=== PATIENT | male | born 1965 | race American Indian/Alaskan Native ===

== ENCOUNTER 2017-02-22 14:23 | Emergency (ER) | payer MEDICARE ==
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
[2017-02-22 21:40] VITALS: BP 104/67
--- NOTE | 2017-02-22 22:56 | XRay Report ---
FINAL REPORT PROCEDURE: XR KNEE 3V LT TECHNIQUE: LEFT knee radiographs, AP, lateral and sunrise views. CPT 83817 HISTORY: LEFT knee pain COMPARISON: No prior studies are available for comparison. FINDINGS: Fracture (s) and/or Dislocation(s): None . Alignment: Normal . Joint space(s): There is advanced chronic degenerative arthrosis of the knee joint. There is moderate degenerative arthrosis of the patellofemoral joint.. Soft tissues: There is no soft tissue swelling or mass.. Bone mineralization: Normal . Foreign bodies: None . IMPRESSION: There are degenerative changes. There is no fracture or malalignment..
== END 2017-02-22 23:57 | disposition home or self-care (01) ==
LOC: ED 14:23
DX: S86.912A Strain of unspecified muscle(s) and tendon(s) at lower leg level, left leg, initial encounter (principal); J45.909 Unspecified asthma, uncomplicated; F31.9 Bipolar disorder, unspecified; F20.9 Schizophrenia, unspecified; X58.XXXA Exposure to other specified factors, initial encounter; Y93.9 Activity, unspecified; Y92.9 Unspecified place or not applicable; Y99.9 Unspecified external cause status

== ENCOUNTER 2017-03-13 08:21 | Emergency (ER) | payer MEDICARE ==
[2017-03-13 09:26] LABS: Basophils % (Auto) 0.4 % (0.0-1.8); Eosinophils % (Auto) 0.1 % (0.0-4.3); Hematocrit 48.3 % (35.5-45.6); Hemoglobin 15.9 gm/dl (11.8-15.2); Mean Corpuscular HGB Conc 33 % (32-34); Mean Corpuscular Hemoglobin 30 pg (28-32); Mean Corpuscular Volume 92 fl (84-94); Platelet Count 236 K/mm3 (140-440); Red Blood Count 5.24 M/mm3 (3.65-5.03); Red Cell Distribution Width 14.2 % (13.2-15.2); White Blood Count 9.2 K/mm3 (4.5-11.0)
[2017-03-13 09:34] LABS: BUN/Creatinine Ratio 13; Blood Urea Nitrogen 15 mg/dL (9-20); Calcium 9.6 mg/dL (8.4-10.2); Carbon Dioxide 22 mmol/L (22-30); Glucose 119 mg/dL (75-100)
[2017-03-13 10:32] LABS: Anion Gap 25 mmol/L; Chloride 98.5 mmol/L (98-107); Sodium 142 mmol/L (137-145)
[2017-03-13] MEDS ORDERED: K-DUR PO ONE (10:33)
--- NOTE | 2017-03-13 10:50 | Emergency Department Report ---
HPI - General Chief Complaint: Psych Time Seen by Provider: 03/13/17 10:33 - HPI HPI: This is a 51-year-old male presents to the emergency department with complaint of insomnia, decreased appetite. Patient says that he sometimes is able to get to sleep but then wake up only a few hours later. Sometimes he feels as if he has trouble getting to sleep at all. Patient now says that he feels like he has not gotten any sleep over the past 3 days. He has a history of schizophrenia and bipolar disorder and says that he has been out of his Seroquel for the bipolar disorder. He also admits to some recent troubles with his as he has a suspicion of her cheating on him and also says that they have been having some arguments. He says when there is some type of confrontation that he is more prone to just "run away" instead of having an argument. He denies any suicidal or homicidal ideations or any hallucinations. His primary care physician is Dr. Lanza but he has not seen them regarding his symptoms. He has an appointment with the [facility] this coming Wednesday. He denies using any significant caffeinated products. He did admit to using cocaine 3 days ago. Patient says that he tries to eat food but he either is just not hungry and cannot make himself 2 or sometimes it makes his mouth hurt. ED Past Medical Hx - Past Medical History Hx Arthritis: Yes Hx Psychiatric Treatment: Yes (bipolar schiz) Hx Asthma: Yes Additional medical history: Chronic bronchitis - Surgical History Additional Surgical History: l) hand surg umbical hernia t&A. left knee surg - 2014 - Social History Smoking Status: Current Every Day Smoker Substance Use Type: Alcohol, Cocaine - Medications Home Medications: Home Medications Medication Instructions Recorded Confirmed Last Taken Type Cephalexin [Keflex] 500 mg PO Q12HR #10 cap 10/14/15 Unknown Rx Ibuprofen [Motrin 600 MG tab] 600 mg PO Q8H PRN #30 tablet 02/22/17 Unknown Rx QUEtiapine [SEROquel] 200 mg PO HS #20 tablet 03/13/17 Unknown Rx ED Review of Systems ROS: Stated complaint: MED REFILL Other details as noted in HPI Comment: All other systems reviewed and negative Constitutional: denies: chills, fever Eyes: denies: eye pain, eye discharge, vision change ENT: denies: ear pain, throat pain Respiratory: denies: cough, shortness of breath, wheezing Cardiovascular: denies: chest pain, palpitations Endocrine: other (insomnia, decreased appetite) Gastrointestinal: denies: abdominal pain, nausea, diarrhea Genitourinary: denies: urgency, dysuria Musculoskeletal: denies: back pain, joint swelling, arthralgia Skin: denies: rash, lesions Neurological: denies: headache, weakness, paresthesias Psychiatric: denies: auditory hallucinations, visual hallucinations, homicidal thoughts, suicidal thoughts Physical Exam - Physical Exam Vital Signs: Vital Signs 03/13/17 08:28 Temperature 98.8 F Pulse Rate 114 H Respiratory 18 Rate Blood Pressure 129/87 O2 Sat by Pulse 98 Oximetry Physical Exam: GENERAL: The patient is well-developed well-nourished. HENT: Normocephalic. Atraumatic. Patient has moist mucous membranes. Oropharynx is clear without any tonsillar hypertrophy, erythema or exudates. No aphthous ulcers seen. No drooling or trismus. EYES: Extraocular motions are intact. Pupils equal reactive to light bilaterally. NECK: Supple. Trachea is midline. CHEST/LUNGS: Clear to auscultation. There is no respiratory distress noted. HEART/CARDIOVASCULAR: Regular. There is no tachycardia. There is no gallop rub or murmur. ABDOMEN: Abdomen is soft, nontender. Patient has normal bowel sounds. There is no abdominal distention. SKIN: Skin is warm and dry. NEURO: The patient is awake, alert, and oriented. The patient is cooperative. The patient has no focal neurologic deficits. The patient has normal speech. MUSCULOSKELETAL: There is no tenderness or deformity. There is no limitation range of motion. There is no evidence of acute injury. ED Course Vital Signs 03/13/17 08:28 Temperature 98.8 F Pulse Rate 114 H Respiratory 18 Rate Blood Pressure 129/87 O2 Sat by Pulse 98 Oximetry ED Medical Decision Making - Lab Data Result diagrams: 03/13/17 08:41 03/13/17 08:41 - Medical Decision Making The patient came in with the main complaints of insomnia and decreased appetite. While he says that there was pain in his mouth with eating and drinking, I did not see any obvious aphthous ulcers or lesions. There is no drooling or trismus or any other abnormality seen. We discussed sleep habits. It does appears that the patient may have some level of chava from his bipolar disorder. It is not the point where he is having any active psychosis or any hallucinations but may be keeping him from getting to sleep or staying asleep. On top of that, the patient appears to be having some issues at home with his in which he has suspicion of her cheating on him. This certainly could be another reason for the patient having trouble sleeping and if there is some level of depression involved also be the reason for decreased appetite. The patient does have a history of schizophrenia and bipolar disorder and I am aware that this could be some level of paranoia related to those conditions, but at this time I have no reason to believe that the patient is lying and/or does not honestly believe or know about some problems at home. He does not appear to be somebody needs to be made a 1013. The patient has been out of his Seroquel for about one month and this may be partly the reason for some of these feelings are conditions and also Seroquel has been known to help people with sleep. He has an appointment coming up on Wednesday with the [facility]. He will be given a small amount of his Seroquel to see if they'll help him with his sleep and maybe even the appetite. He will return to the ER with any worsening symptoms or any acute distress. While I forgot to give the patient any discharge information regarding hyperkalemia, he is aware that he had a potassium level of 3, that it was replaced with potassium chloride, that he needs to eat an extra banana or 2 and that he needs to follow-up with his PCP regarding all of these issues. - Differential Diagnosis bipolar disorder, insomnia, depression Critical Care Time: No Critical care attestation.: If time is entered above; I have spent that time in minutes in the direct care of this critically ill patient, excluding procedure time. ED Disposition Clinical Impression: History of bipolar disorder, Decreased appetite, Hypokalemia Insomnia Qualifiers: Insomnia type: unspecified Qualified Code(s): G47.00 - Insomnia, unspecified Disposition: DC-01 TO HOME OR SELFCARE Is pt being admited?: No Condition: Stable Instructions: Bipolar Disorder (ED), Insomnia (ED) Additional Instructions: Please follow-up with your primary care physician in the next few days. Please follow-up with your psychiatrist next week as previously scheduled. Return to the emergency Department with any worsening of your symptoms or any acute distress. Prescriptions: QUEtiapine [SEROquel] 200 mg PO HS #20 tablet Referrals: KODY LANZA MD [Staff Physician] - 3-[address] [facility] [Outside] - 3-5 Days Time of Disposition: 11:31
[2017-03-13 11:56] LABS: Urine Drugs of Abuse Note Disclamer
[2017-03-13 12:04] VITALS: BP 139/92
[2017-03-13 12:04] LABS: Bacteria,Urine 1+ /HPF (Negative); Bilirubin,Urine NEG (Negative); Blood,Urine SM (Negative); Ketones,Urine 80 mg/dL (Negative); Leukocyte Esterase,Urine NEG (Negative); Mucus,Urine 3+ /HPF; Nitrite,Urine NEG (Negative)
== END 2017-03-13 12:01 | disposition home or self-care (01) ==
LOC: ED 08:21
DX: G47.00 Insomnia, unspecified (principal); E87.6 Hypokalemia; F31.9 Bipolar disorder, unspecified; J45.909 Unspecified asthma, uncomplicated; M19.90 Unspecified osteoarthritis, unspecified site; F17.200 Nicotine dependence, unspecified, uncomplicated; F14.10 Cocaine abuse, uncomplicated; F20.9 Schizophrenia, unspecified
CPT/HCPCS: 36415; 80048; 80307; 81001; 85025; 99283; G0480; 80320

== ENCOUNTER 2017-04-25 22:39 | Emergency (ER) | payer MEDICARE ==
[2017-04-25] MEDS ORDERED: TYLENOL PO ONE (23:01)
[2017-04-25 23:37] LABS: Basophils % (Auto) 0.5 % (0.0-1.8); Eosinophils % (Auto) 0.1 % (0.0-4.3); Hematocrit 48.6 % (35.5-45.6); Mean Corpuscular HGB Conc 33 % (32-34); Mean Corpuscular Hemoglobin 31 pg (28-32); Mean Corpuscular Volume 94 fl (84-94); Platelet Count 223 K/mm3 (140-440); Red Blood Count 5.17 M/mm3 (3.65-5.03); Red Cell Distribution Width 13.8 % (13.2-15.2); White Blood Count 10.4 K/mm3 (4.5-11.0)
[2017-04-25 23:42] LABS: Anion Gap 23 mmol/L; BUN/Creatinine Ratio 15; Blood Urea Nitrogen 16 mg/dL (9-20); Calcium 9.5 mg/dL (8.4-10.2); Carbon Dioxide 20 mmol/L (22-30); Chloride 97.7 mmol/L (98-107); Glucose 158 mg/dL (75-100); Sodium 138 mmol/L (137-145)
--- NOTE | 2017-04-26 00:12 | XRay Report ---
FINAL REPORT EXAM: XR CHEST ROUTINE 2V HISTORY: Shortness of breath TECHNIQUE: PA and lateral views of the chest PRIORS: None. FINDINGS: Lines, tubes, and devices: N/A Lungs and pleura: Trachea is normal in position. On the lateral view, there is a posterior basilar alveolar infiltrate identified. This is definitely identified in the left lower lobe on the frontal view but may also involve the right lower lobe. There is no evidence for pleural effusion, vascular congestion, or pneumothorax. Cardiomediastinal silhouette: Cardiac and mediastinal silhouettes are unremarkable. Other: Bony structures are intact. IMPRESSION: Posterior basilar infiltrate definitely in the left lower lobe but also possibly in the right lower lobe.
--- NOTE | 2017-04-26 00:15 | XRay Report ---
FINAL REPORT EXAM: XR KNEE 3V LT HISTORY: knee pain, injury TECHNIQUE: AP, oblique, and lateral views of the left knee PRIORS: Left knee x-rays 02/22/2017 FINDINGS: No acute fracture or dislocation is seen. The soft tissues demonstrate a moderate suprapatellar joint effusion. The bony mineralization is normal. There is joint space narrowing in both medial and lateral knee joints with spurring off the tibial spines and off the both medial and lateral knee joints. The overall appearance is stable. The patellofemoral joint as significant posterior spurring off patella, similar to the previous study. IMPRESSION: No acute abnormality of the left knee. Stable exam. Tricompartmental osteoarthritis.
[2017-04-26 00:27] LABS: Potassium 2.9 mmol/L (3.6-5.0)
[2017-04-26] MEDS ORDERED: K-DUR PO ONE (06:22)
[2017-04-26] MEDS ORDERED: ZITHROMAX PO STA (06:29)
[2017-04-26] MEDS ORDERED: NACL 0.9% 1000 ML 1,000 ML IV ONE (06:29)
[2017-04-26] MEDS ORDERED: TORADOL IV ONE (06:29)
[2017-04-26] MEDS ORDERED: ROCEPHIN/NS 1 GM/50 ML 1 GM/50 ML BAG IV ONE (06:29)
--- NOTE | 2017-04-26 06:31 | Emergency Department Report ---
ED General Adult HPI - General Chief complaint: Weakness Stated complaint: LEFT KNEE PAIN,SHORT OF BREATH Time Seen by Provider: 04/26/17 06:20 Source: patient, RN notes reviewed, old records reviewed Mode of arrival: Ambulatory Limitations: No Limitations - History of Present Illness Initial comments: This is a 51-year-old male who is previously known to this provider. His primary care doctor is Dr. LANZA Patient presents to the ER with a complaint of left-sided knee pain. The knee pain has been present for 12 years. It does not radiate anywhere. It increases with palpation and range of motion, and it decreases with rest. The patient denies headache and neck pain as well as chest pain. No recent travel, no recent hospital admissions, no calf pain. To me, the patient makes no complaint about blurry vision. He did admits to shortness of breath, cough and mucus production for a few days. No recent sick contacts, no recent antibiotic use. -: year(s) Location: left, lower extremity Severity scale (0 -10): 10 Quality: aching Consistency: intermittent Improves with: rest Worsens with: movement Associated Symptoms: cough, malaise, shortness of breath. denies: chest pain - Related Data Previous Rx's Medication Instructions Recorded Last Taken Type Cephalexin [Keflex] 500 mg PO Q12HR #10 cap 10/14/15 Unknown Rx Ibuprofen [Motrin 600 MG tab] 600 mg PO Q8H PRN #30 tablet 02/22/17 Unknown Rx QUEtiapine [SEROquel] 200 mg PO HS #20 tablet 03/13/17 Unknown Rx Acetaminophen [Tylenol Arthritis] 650 mg PO Q6HR PRN #30 tablet.er 04/26/17 Unknown Rx Albuterol Sulfate [Proair 90 mcg IH Q4HR PRN #2 aer.pow.ba 04/26/17 Unknown Rx Respiclick] Azithromycin 250 mg PO QDAY #4 tablet 04/26/17 Unknown Rx Benzonatate [Tessalon Perles] 100 mg PO Q8HR PRN #30 capsule 04/26/17 Unknown Rx Fluticasone [Flonase] 1 spray NS QDAY #1 bottle 04/26/17 Unknown Rx Ibuprofen [Motrin] 600 mg PO Q8H PRN #30 tablet 04/26/17 Unknown Rx Ondansetron [Zofran Odt] 4 mg PO Q8HR PRN #20 tab.rapdis 04/26/17 Unknown Rx Potassium Chloride [Klor-Con] 20 meq PO BID #14 packet 04/26/17 Unknown Rx Allergies Allergy/AdvReac Type Severity Reaction Status Date / Time No Known Allergies Allergy Verified 08/17/15 10:26 ED Review of Systems ROS: Stated complaint: LEFT KNEE PAIN,SHORT OF BREATH Other details as noted in HPI Constitutional: denies: fever Eyes: denies: vision change ENT: congestion Respiratory: cough Cardiovascular: denies: syncope Gastrointestinal: denies: vomiting Musculoskeletal: as per HPI, arthralgia Neurological: denies: confusion ED Past Medical Hx - Past Medical History Hx Arthritis: Yes Hx Psychiatric Treatment: Yes (bipolar schiz) Hx Asthma: Yes Additional medical history: Chronic bronchitis - Surgical History Additional Surgical History: l) hand surg umbical hernia t&A. left knee surg - 2014 - Social History Smoking Status: Former Smoker Substance Use Type: None - Medications Home Medications: Home Medications Medication Instructions Recorded Confirmed Last Taken Type Cephalexin [Keflex] 500 mg PO Q12HR #10 cap 10/14/15 Unknown Rx Ibuprofen [Motrin 600 MG tab] 600 mg PO Q8H PRN #30 tablet 02/22/17 Unknown Rx QUEtiapine [SEROquel] 200 mg PO HS #20 tablet 03/13/17 Unknown Rx Acetaminophen [Tylenol Arthritis] 650 mg PO Q6HR PRN #30 tablet.er 04/26/17 Unknown Rx Albuterol Sulfate [Proair 90 mcg IH Q4HR PRN #2 aer.pow.ba 04/26/17 Unknown Rx Respiclick] Azithromycin 250 mg PO QDAY #4 tablet 04/26/17 Unknown Rx Benzonatate [Tessalon Perles] 100 mg PO Q8HR PRN #30 capsule 04/26/17 Unknown Rx Fluticasone [Flonase] 1 spray NS QDAY #1 bottle 04/26/17 Unknown Rx Ibuprofen [Motrin] 600 mg PO Q8H PRN #30 tablet 04/26/17 Unknown Rx Ondansetron [Zofran Odt] 4 mg PO Q8HR PRN #20 tab.rapdis 04/26/17 Unknown Rx Potassium Chloride [Klor-Con] 20 meq PO BID #14 packet 04/26/17 Unknown Rx ED Physical Exam - General Limitations: No Limitations General appearance: alert, in no apparent distress - Head Head exam: Present: atraumatic, normocephalic - Eye Eye exam: Present: normal appearance, PERRL, EOMI, other (visual acuity intact to finger counting, color perception, reading at a close distance). Absent: nystagmus - ENT ENT exam: Present: normal exam, normal orophraynx, mucous membranes moist, normal external ear exam - Neck Neck exam: Present: normal inspection, full ROM - Respiratory Respiratory exam: Present: rhonchi (rhonchi noted in the left lower lung field) . Absent: respiratory distress - Cardiovascular Cardiovascular Exam: Present: regular rate, normal rhythm, normal heart sounds. Absent: tachycardia, systolic murmur, diastolic murmur, rubs, gallop - GI/Abdominal GI/Abdominal exam: Present: soft, normal bowel sounds. Absent: distended, tenderness, guarding, rebound, rigid, pulsatile mass - Rectal Rectal exam: Present: deferred - Extremities Exam Extremities exam: Present: normal inspection, full ROM, normal capillary refill , other (there is no palpable cord. There is a negative Homans sign. The left knee is tender in the lateral and medial joint line. There is pain with valgus and varus. The compartments are soft. 2+ pulses noted in the bilateral upper and lower extremities.). Absent: pedal edema, joint swelling, calf tenderness - Back Exam Back exam: Present: normal inspection, full ROM. Absent: tenderness, CVA tenderness (R), paraspinal tenderness - Neurological Exam Neurological exam: Present: alert, oriented X3, normal gait, other (Extraocular movements intact. Tongue midline. No facial droop. Facial sensation intact to light touch in the V1, V2, V3 distribution bilaterally. 5 and 5 strength in 4 extremities.. Sensation is intact to light touch in 4 extremities.). Absent : motor sensory deficit - Psychiatric Psychiatric exam: Present: normal affect, normal mood - Skin Skin exam: Present: warm, dry, intact, normal color. Absent: rash ED Course Vital Signs 04/25/17 04/25/17 04/26/17 22:53 23:06 02:09 Temperature 99.3 F Pulse Rate 110 H 88 Respiratory 20 18 18 Rate Blood Pressure 121/84 Blood Pressure 126/87 [Left] O2 Sat by Pulse 94 Oximetry 04/26/17 04/26/17 04/26/17 02:11 02:45 03:15 Temperature Pulse Rate 86 90 Respiratory 18 16 16 Rate Blood Pressure Blood Pressure 122/73 114/72 [Left] O2 Sat by Pulse Oximetry 04/26/17 04/26/17 04/26/17 03:45 04:30 05:30 Temperature Pulse Rate 90 89 89 Respiratory 16 16 16 Rate Blood Pressure Blood Pressure 114/82 118/88 119/88 [Left] O2 Sat by Pulse Oximetry 04/26/17 04/26/17 06:30 07:30 Temperature 97.6 F Pulse Rate 94 H 87 Respiratory 20 16 Rate Blood Pressure Blood Pressure 120/81 125/84 [Left] O2 Sat by Pulse 94 Oximetry - Reevaluation(s) Reevaluation #1: 04/26/17 08:07 Patient sleeping comfortably in stretcher. Vital signs remained stable. Patient in no distress. Walks without desaturation. Patient will be discharged at this time. ED Medical Decision Making - Lab Data Result diagrams: 04/25/17 23:03 04/25/17 23:03 Vital Signs 04/25/17 04/25/17 04/26/17 22:53 23:06 02:09 Temperature 99.3 F Pulse Rate 110 H 88 Respiratory 20 18 18 Rate Blood Pressure 121/84 Blood Pressure 126/87 [Left] O2 Sat by Pulse 94 Oximetry 04/26/17 04/26/17 04/26/17 02:11 02:45 03:15 Temperature Pulse Rate 86 90 Respiratory 18 16 16 Rate Blood Pressure Blood Pressure 122/73 114/72 [Left] O2 Sat by Pulse Oximetry 04/26/17 04/26/17 04/26/17 03:45 04:30 05:30 Temperature Pulse Rate 90 89 89 Respiratory 16 16 16 Rate Blood Pressure Blood Pressure 114/82 118/88 119/88 [Left] O2 Sat by Pulse Oximetry 04/26/17 06:30 Temperature Pulse Rate 94 H Respiratory 20 Rate Blood Pressure Blood Pressure 120/81 [Left] O2 Sat by Pulse Oximetry Lab Results 04/25/17 04/25/17 Range/Units 23:03 23:03 WBC 10.4 (4.5-11.0) K/mm3 RBC 5.17 H (3.65-5.03) M/mm3 Hgb 16.0 H (11.8-15.2) gm/dl Hct 48.6 H (35.5-45.6) % MCV 94 (84-94) fl MCH 31 (28-32) pg MCHC 33 (32-34) % RDW 13.8 (13.2-15.2) % Plt Count 223 (140-440) K/mm3 Lymph % (Auto) 25.2 (13.4-35.0) % Hitchcock % (Auto) 6.0 (0.0-7.3) % Eos % (Auto) 0.1 (0.0-4.3) % Baso % (Auto) 0.5 (0.0-1.8) % Lymph # 2.6 (1.2-5.4) K/mm3 Hitchcock # 0.6 (0.0-0.8) K/mm3 Eos # 0.0 (0.0-0.4) K/mm3 Baso # 0.1 (0.0-0.1) K/mm3 Seg Neutrophils % 68.2 (40.0-70.0) % Seg Neutrophils # 7.1 (1.8-7.7) K/mm3 Sodium 138 (137-145) mmol/L Potassium 2.9 L* (3.6-5.0) mmol/L Chloride 97.7 L (98-107) mmol/L Carbon Dioxide 20 L (22-30) mmol/L Anion Gap 23 mmol/L BUN 16 (9-20) mg/dL Creatinine 1.1 (0.8-1.5) mg/dL Estimated GFR > 60 ml/min BUN/Creatinine Ratio 15 % Glucose 158 H (75-100) mg/dL Calcium 9.5 (8.4-10.2) mg/dL Troponin T < 0.010 (0.00-0.029) ng/mL - EKG Data -: EKG Interpreted by Mn - EKG Data 04/26/17 07:43 Sinus tachycardia, 101 bpm, left axis deviation, poor R progression, abnormal EKG, not morphologically consistent with ST elevation myocardial infarction, QTC prolonged at 561 ms, compared to prior EKG, left axis deviation appears to be new. - Radiology Data Radiology results: report reviewed, image reviewed X-ray the chest suggests left posterior pneumonia, possible right lower lobe pneumonia. - Medical Decision Making Differential diagnosis, including but not limited to: Dehydration, electrolyte derangement, pneumonia, knee arthritis Assessment and plan: 51-year-old male with a primary complaint of left knee pain which has been present for 12 years. X-ray suggests arthritis. No DVT or pulmonary embolus risk factors, low risk by well's criteria, walks with a steady gait. The patient can follow up with outpatient orthopedics and/or physical therapy for this. He is tolerating oral feeds, his tachycardia has resolved, he is loaded with IV fluids, ceftriaxone and azithromycin for his presumed pneumonia, and he is suitable for a trial of outpatient management of antibiotics. EKG is abnormal but can be followed up by an outpatient primary care doctor or enamel shader, to me, the patient did not complain of chest pain, he is low risk by QUINN score, he is low risk by heart score, troponin negative 3. Critical care attestation.: If time is entered above; I have spent that time in minutes in the direct care of this critically ill patient, excluding procedure time. ED Disposition Clinical Impression: Left knee pain, Bronchitis, Hypokalemia Disposition: TO HOME OR SELFCARE Is pt being admited?: No Does the pt Need Aspirin: No Condition: Good Instructions: Acute Bronchitis (ED) Additional Instructions: X-ray of the chest suggested left-sided pneumonia. Take the antibiotics as directed, take the pain medicine, cough medication, breathing medication as needed/directed. Potassium levels were decreased in the ER, take potassium supplementation as directed, do not take Seroquel until cleared by your primary care doctor. I recommend that you follow-up with the primary care doctor within the next 2-3 days for a recheck. EKG demonstrated abnormalities, this should be followed up by her primary care doctor or enamel shader within the next 7-10 days. Follow up with OB or primary care doctor or any illicit cardiology group for further follow-up on this. Avoid consumption of alcohol. Return to the ER right away with new pain, worsened pain, migration of pain, fevers, chills, lethargy, irritability, projectile vomiting, change in mental status, inability to tolerate liquid feeds. X-ray the left knee demonstrated arthritis. Please follow-up with an client account specialist within the next 4-[address] Snell is a local client account specialist. Prescriptions: Acetaminophen [Tylenol Arthritis] 650 mg PO Q6HR PRN #30 tablet.er PRN Reason: Pain Albuterol Sulfate [Proair Respiclick] 90 mcg IH Q4HR PRN #2 aer.pow.ba PRN Reason: Wheezing Azithromycin 250 mg PO QDAY #4 tablet Benzonatate [Tessalon Perles] 100 mg PO Q8HR PRN #30 capsule PRN Reason: Cough Fluticasone [Flonase] 1 spray NS QDAY #1 bottle Ibuprofen [Motrin] 600 mg PO Q8H PRN #30 tablet PRN Reason: Pain Ondansetron [Zofran Odt] 4 mg PO Q8HR PRN #20 tab.rapdis PRN Reason: Nausea Potassium Chloride [Klor-Con] 20 meq PO BID #14 packet Referrals: KODY LANZA MD [Primary Care Provider] - 3-5 Days CHILANGO SNELL MD [Staff Physician] - 3-5 Days [facility] [Provider Group] - 3-5 Days [facility] [Provider Group] - 3-5 Days
[2017-04-26] MEDS ORDERED: NACL 0.9% IV ONE (06:45)
[2017-04-26] MEDS ORDERED: ROCEPHIN IV ONE (06:45)
[2017-04-26 07:55] VITALS: BP 125/84
== END 2017-04-26 08:44 | disposition home or self-care (01) ==
LOC: ED 22:39
DX: M25.562 Pain in left knee (principal); J40 Bronchitis, not specified as acute or chronic; E87.6 Hypokalemia; M19.90 Unspecified osteoarthritis, unspecified site; J45.909 Unspecified asthma, uncomplicated; Z87.891 Personal history of nicotine dependence; Z98.890 Other specified postprocedural states
CPT/HCPCS: 36415; 71020; 73562; 80048; 83735; 84484; 85025; 93005; 93010; 96361; 96374; 96375; 99284; J0696; J1885; J7030

== ENCOUNTER 2017-05-03 09:39 | Emergency (ER) | payer MEDICARE ==
[2017-05-03 10:40] VITALS: BP 145/96
[2017-05-03] MEDS ORDERED: MOTRIN PO ONE (10:40)
--- NOTE | 2017-05-03 13:54 | Emergency Department Report ---
ED ENT HPI - General Chief complaint: Dental/Oral Stated complaint: SWOLLEN JAW Time Seen by Provider: 05/03/17 13:30 Source: patient Mode of arrival: Ambulatory Limitations: No Limitations - History of Present Illness Initial comments: PT states he knows he has a cavity (left upper) PT states his tooth was irritating him yesterday and he woke up with a knot on his face. PT states he has not been to the dentist for years. PT states he was in the ED last week for PNA. PT states he finished his antibiotics 2 days ago. PT states he is feeling better, no cough, no fevers or chills. MD complaint: tooth pain -: Gradual, days(s) Location: tooth # (left upper) Severity: moderate Severity scale (0 -10): 7 Quality: aching, constant Consistency: constant Improves with: none Worsens with: none Context- Dental: history of dental caries, poor dental care Associated Symptoms: denies: fever, cough - Related Data Previous Rx's Medication Instructions Recorded Last Taken Type QUEtiapine [SEROquel] 200 mg PO HS #20 tablet 03/13/17 Unknown Rx Acetaminophen [Tylenol Arthritis] 650 mg PO Q6HR PRN #30 tablet.er 04/26/17 Unknown Rx Albuterol Sulfate [Proair 90 mcg IH Q4HR PRN #2 aer.pow.ba 04/26/17 Unknown Rx Respiclick] Benzonatate [Tessalon Perles] 100 mg PO Q8HR PRN #30 capsule 04/26/17 Unknown Rx Fluticasone [Flonase] 1 spray NS QDAY #1 bottle 04/26/17 Unknown Rx Ibuprofen [Motrin] 600 mg PO Q8H PRN #30 tablet 04/26/17 Unknown Rx Ondansetron [Zofran Odt] 4 mg PO Q8HR PRN #20 tab.rapdis 04/26/17 Unknown Rx Potassium Chloride [Klor-Con] 20 meq PO BID #14 packet 04/26/17 Unknown Rx Clindamycin [Clindamycin CAP] 300 mg PO Q8H #30 cap 05/03/17 Unknown Rx Allergies Allergy/AdvReac Type Severity Reaction Status Date / Time No Known Allergies Allergy Verified 08/17/15 10:26 ED Dental HPI - General Chief complaint: Dental/Oral Stated complaint: SWOLLEN JAW Time Seen by Provider: 05/03/17 13:30 Source: patient Mode of arrival: Ambulatory Limitations: No Limitations - Related Data Previous Rx's Medication Instructions Recorded Last Taken Type QUEtiapine [SEROquel] 200 mg PO HS #20 tablet 03/13/17 Unknown Rx Acetaminophen [Tylenol Arthritis] 650 mg PO Q6HR PRN #30 tablet.er 04/26/17 Unknown Rx Albuterol Sulfate [Proair 90 mcg IH Q4HR PRN #2 aer.pow.ba 04/26/17 Unknown Rx Respiclick] Benzonatate [Tessalon Perles] 100 mg PO Q8HR PRN #30 capsule 04/26/17 Unknown Rx Fluticasone [Flonase] 1 spray NS QDAY #1 bottle 04/26/17 Unknown Rx Ibuprofen [Motrin] 600 mg PO Q8H PRN #30 tablet 04/26/17 Unknown Rx Ondansetron [Zofran Odt] 4 mg PO Q8HR PRN #20 tab.rapdis 04/26/17 Unknown Rx Potassium Chloride [Klor-Con] 20 meq PO BID #14 packet 04/26/17 Unknown Rx Clindamycin [Clindamycin CAP] 300 mg PO Q8H #30 cap 05/03/17 Unknown Rx Allergies Allergy/AdvReac Type Severity Reaction Status Date / Time No Known Allergies Allergy Verified 08/17/15 10:26 ED Review of Systems ROS: Stated complaint: SWOLLEN JAW Other details as noted in HPI Comment: All other systems reviewed and negative Constitutional: denies: chills, fever ENT: dental pain. denies: throat pain Respiratory: denies: cough, shortness of breath Gastrointestinal: denies: abdominal pain Skin: denies: change in color ED Past Medical Hx - Past Medical History Hx Arthritis: Yes Hx Psychiatric Treatment: Yes (bipolar schiz) Hx Asthma: Yes Additional medical history: Chronic bronchitis - Surgical History Additional Surgical History: l) hand surg umbical hernia t&A. left knee surg - 2014 - Social History Smoking Status: Current Some Day Smoker Substance Use Type: Cocaine, Marijuana - Medications Home Medications: Home Medications Medication Instructions Recorded Confirmed Last Taken Type QUEtiapine [SEROquel] 200 mg PO HS #20 tablet 03/13/17 Unknown Rx Acetaminophen [Tylenol Arthritis] 650 mg PO Q6HR PRN #30 tablet.er 04/26/17 Unknown Rx Albuterol Sulfate [Proair 90 mcg IH Q4HR PRN #2 aer.pow.ba 04/26/17 Unknown Rx Respiclick] Benzonatate [Tessalon Perles] 100 mg PO Q8HR PRN #30 capsule 04/26/17 Unknown Rx Fluticasone [Flonase] 1 spray NS QDAY #1 bottle 04/26/17 Unknown Rx Ibuprofen [Motrin] 600 mg PO Q8H PRN #30 tablet 04/26/17 Unknown Rx Ondansetron [Zofran Odt] 4 mg PO Q8HR PRN #20 tab.rapdis 04/26/17 Unknown Rx Potassium Chloride [Klor-Con] 20 meq PO BID #14 packet 04/26/17 Unknown Rx Clindamycin [Clindamycin CAP] 300 mg PO Q8H #30 cap 05/03/17 Unknown Rx ED Physical Exam - General Limitations: No Limitations General appearance: alert, in no apparent distress - Head Head exam: Present: atraumatic, normocephalic, other (mild facial edema noted to L maxillary - no cellulitis ) - Eye Eye exam: Present: normal appearance, PERRL. Absent: conjunctival injection - ENT ENT exam: Present: mucous membranes moist, normal external ear exam - Expanded ENT Exam Expanded Mouth exam: Absent: drooling, trismus Teeth exam: Present: dental caries, dental tenderness #, gingival enlargement 1 - Other (tooth absent) 2 - Dental Tenderness 3 - Other (left upper gum, enlarged, no palpable fluid collection) Throat exam: Positive: normal inspection. Negative: tonsillar erythema, tonsillomegaly, tonsillar exudate - Neck Neck exam: Present: normal inspection, full ROM - Respiratory Respiratory exam: Present: rhonchi (cuauhtemoc bases). Absent: respiratory distress, wheezes - Cardiovascular Cardiovascular Exam: Present: regular rate, normal rhythm, normal heart sounds - Extremities Exam Extremities exam: Present: normal inspection, full ROM - Back Exam Back exam: Present: normal inspection, full ROM - Neurological Exam Neurological exam: Present: alert, oriented X3, normal gait - Psychiatric Psychiatric exam: Present: normal affect, normal mood - Skin Skin exam: Present: warm, dry, intact, normal color ED Course Vital Signs 05/03/17 10:38 Temperature 98.4 F Pulse Rate 76 Respiratory 17 Rate Blood Pressure 145/96 [Left] O2 Sat by Pulse 98 Oximetry - Reevaluation(s) Reevaluation #1: 05/03/17 14:14 PT aware he will need to follow up with Dentist. PT given strict return precautions. PT has no questions at this time. - Pulse Oximetry Interpretation Digit-Finger Initial Pulse Oximetry Readin Actions Taken: none ED Medical Decision Making - Differential Diagnosis dental abscess, gingivitis, toothach Critical Care Time: No Critical care attestation.: If time is entered above; I have spent that time in minutes in the direct care of this critically ill patient, excluding procedure time. ED Disposition Clinical Impression: Toothache, Left facial swelling Disposition: TO HOME OR SELFCARE Is pt being admited?: No Does the pt Need Aspirin: No Condition: Stable Instructions: Dental Abscess (ED), Dental Caries (ED), Toothache (ED) Additional Instructions: Good oral hygiene No smoking Swish and spit warm salt water four times a day Follow up with Dentist in 3-5 days Follow up with PCP in 3-5 days for BP recheck Return to ED if worsening swelling, pain or you develop fevers, chills, nausea or vomiting. Prescriptions: Clindamycin [Clindamycin CAP] 300 mg PO Q8H #30 cap Referrals: KODY LANZA MD [Primary Care Provider] - 3-5 Days Forms: Work/School Release Form(ED) Time of Disposition: 14:23
== END 2017-05-03 14:37 | disposition home or self-care (01) ==
LOC: ED 09:39
DX: K08.89 Other specified disorders of teeth and supporting structures (principal); R22.0 Localized swelling, mass and lump, head; F31.9 Bipolar disorder, unspecified; F20.9 Schizophrenia, unspecified; J45.909 Unspecified asthma, uncomplicated; F17.200 Nicotine dependence, unspecified, uncomplicated; F12.10 Cannabis abuse, uncomplicated
CPT/HCPCS: 99282

== ENCOUNTER 2017-05-09 09:02 | Emergency (ER) | payer MEDICARE ==
[2017-05-09 09:11] VITALS: BP 134/94
[2017-05-09 10:47] LABS: CDIFF A/B Negative (Negative); CDIFF Internal QC Valid
--- NOTE | 2017-05-09 11:57 | Emergency Department Report ---
ED N/V/D HPI - General Chief complaint: Nausea/Vomiting/Diarrhea Stated complaint: DIARRHEA Source: patient Mode of arrival: Ambulatory Limitations: No Limitations - History of Present Illness Initial comments: 51-year-old -[place] male comes in for complaint of diarrhea for 7 days. Patient had a recent history of IV antibiotics such as clindamycin as well as by mouth clindamycin for pneumonia and tooth abscess. He reports that he's had 3-4 stools a day that have been watery and very loose. He stopped taking the clindamycin yesterday. He denies any abdominal cramping. Denies any fever or chills. He currently has no primary care provider MD complaint: nausea, diarrhea -: days(s) (3) Description of Vomiting: watery Associated Abdominal Pain: No Severity: moderate Pain Scale: 0 Consistency: intermittent Improves with: none Worsens with: medication Associated Symptoms: headaches - Related Data Previous Rx's Medication Instructions Recorded Last Taken Type QUEtiapine [SEROquel] 200 mg PO HS #20 tablet 03/13/17 Unknown Rx Acetaminophen [Tylenol Arthritis] 650 mg PO Q6HR PRN #30 tablet.er 04/26/17 Unknown Rx Albuterol Sulfate [Proair 90 mcg IH Q4HR PRN #2 aer.pow.ba 04/26/17 Unknown Rx Respiclick] Benzonatate [Tessalon Perles] 100 mg PO Q8HR PRN #30 capsule 04/26/17 Unknown Rx Fluticasone [Flonase] 1 spray NS QDAY #1 bottle 04/26/17 Unknown Rx Ondansetron [Zofran Odt] 4 mg PO Q8HR PRN #20 tab.rapdis 04/26/17 Unknown Rx Potassium Chloride [Klor-Con] 20 meq PO BID #14 packet 04/26/17 Unknown Rx Clindamycin [Clindamycin CAP] 300 mg PO Q8H #30 cap 05/03/17 Unknown Rx Ibuprofen [Motrin 600 MG tab] 600 mg PO Q8H PRN 10 Days #30 05/09/17 Unknown Rx tablet metroNIDAZOLE [Flagyl] 500 mg PO Q12HR 7 Days #14 tab 05/09/17 Unknown Rx Allergies Allergy/AdvReac Type Severity Reaction Status Date / Time No Known Allergies Allergy Verified 08/17/15 10:26 ED Review of Systems ROS: Stated complaint: DIARRHEA Other details as noted in HPI Constitutional: denies: chills, fever Eyes: denies: eye pain, eye discharge, vision change ENT: denies: ear pain, throat pain Respiratory: denies: cough, shortness of breath, wheezing Cardiovascular: denies: chest pain, palpitations Endocrine: no symptoms reported Gastrointestinal: nausea, diarrhea Genitourinary: denies: urgency, dysuria Musculoskeletal: denies: back pain, joint swelling, arthralgia Skin: denies: rash, lesions Neurological: headache Hematological/Lymphatic: denies: easy bleeding, easy bruising ED Past Medical Hx - Past Medical History Hx Arthritis: Yes Hx Psychiatric Treatment: Yes (bipolar schiz) Hx Asthma: Yes Additional medical history: Chronic bronchitis - Surgical History Past Surgical History?: Yes Additional Surgical History: l) hand surg umbical hernia t&A. left knee surg - 2014 - Social History Smoking Status: Current Every Day Smoker Substance Use Type: None - Medications Home Medications: Home Medications Medication Instructions Recorded Confirmed Last Taken Type QUEtiapine [SEROquel] 200 mg PO HS #20 tablet 03/13/17 Unknown Rx Acetaminophen [Tylenol Arthritis] 650 mg PO Q6HR PRN #30 tablet.er 04/26/17 Unknown Rx Albuterol Sulfate [Proair 90 mcg IH Q4HR PRN #2 aer.pow.ba 04/26/17 Unknown Rx Respiclick] Benzonatate [Tessalon Perles] 100 mg PO Q8HR PRN #30 capsule 04/26/17 Unknown Rx Fluticasone [Flonase] 1 spray NS QDAY #1 bottle 04/26/17 Unknown Rx Ondansetron [Zofran Odt] 4 mg PO Q8HR PRN #20 tab.rapdis 04/26/17 Unknown Rx Potassium Chloride [Klor-Con] 20 meq PO BID #14 packet 04/26/17 Unknown Rx Clindamycin [Clindamycin CAP] 300 mg PO Q8H #30 cap 05/03/17 Unknown Rx Ibuprofen [Motrin 600 MG tab] 600 mg PO Q8H PRN 10 Days #30 05/09/17 Unknown Rx tablet metroNIDAZOLE [Flagyl] 500 mg PO Q12HR 7 Days #14 tab 05/09/17 Unknown Rx ED Physical Exam - General Limitations: No Limitations General appearance: alert, in no apparent distress - Head Head exam: Present: atraumatic, normocephalic - Eye Eye exam: Present: normal appearance - ENT ENT exam: Present: mucous membranes moist - Neck Neck exam: Present: normal inspection - Respiratory Respiratory exam: Present: normal lung sounds bilaterally. Absent: respiratory distress - Cardiovascular Cardiovascular Exam: Present: regular rate, normal rhythm. Absent: systolic murmur, diastolic murmur, rubs, gallop - GI/Abdominal GI/Abdominal exam: Present: soft, normal bowel sounds - Rectal Rectal exam: Present: deferred - Extremities Exam Extremities exam: Present: normal inspection - Back Exam Back exam: Present: normal inspection - Neurological Exam Neurological exam: Present: alert, oriented X3 - Psychiatric Psychiatric exam: Present: normal affect, normal mood - Skin Skin exam: Present: warm, dry, intact, normal color. Absent: rash ED Course Vital Signs 05/09/17 09:07 Temperature 98.5 F Pulse Rate 89 Respiratory 18 Rate Blood Pressure 134/94 O2 Sat by Pulse 100 Oximetry ED Medical Decision Making - Medical Decision Making Patient has been evaluated by this provider faster. Discussed the patient's vital signs are stable he does not appear toxic is no abdominal pain negative examination and abdomen. Discussed with patient will place him on Flagyl. Recommend [id number] probiotics to help with the floor of his GI tract. Discussed the patient is imperative for him to follow up with her primary care provider within 3-5 days for further evaluation. Discussed the patient that his stool culture came back negative for C. difficile. We will refill patient ibuprofen for his headache. Patient verbalized understanding. Critical care attestation.: If time is entered above; I have spent that time in minutes in the direct care of this critically ill patient, excluding procedure time. ED Disposition Clinical Impression: Diarrhea due to drug Headache Qualifiers: Headache type: unspecified Headache chronicity pattern: acute headache Intractability: not intractable Qualified Code(s): R51 - Headache Disposition: DC-01 TO HOME OR SELFCARE Is pt being admited?: No Does the pt Need Aspirin: No Condition: Stable Instructions: Migraine Headache (ED), Acute Diarrhea (ED) Additional Instructions: Take medications as prescribed. Follow up with the primary care provider when 3 -5 days for continued care. Prescriptions: Ibuprofen [Motrin 600 MG tab] 600 mg PO Q8H PRN 10 Days #30 tablet PRN Reason: Pain metroNIDAZOLE [Flagyl] 500 mg PO Q12HR 7 Days #14 tab Referrals: PRIMARY CARE, [Primary Care Provider] - 3-5 Days [facility] [Outside] - 3-5 Days
[2017-05-09] MEDS ORDERED: MOTRIN PO ONE (12:03)
== END 2017-05-09 12:13 | disposition home or self-care (01) ==
LOC: ED 09:02
DX: K52.1 Toxic gastroenteritis and colitis (principal); R51 Headache; M19.90 Unspecified osteoarthritis, unspecified site; F20.9 Schizophrenia, unspecified; J45.909 Unspecified asthma, uncomplicated
CPT/HCPCS: 87324; 99283

== ENCOUNTER 2017-05-12 15:31 | Emergency (ER) | payer MEDICARE ==
[2017-05-12 15:59] VITALS: BP 120/93
[2017-05-12] MEDS ORDERED: XYLOCAINE 1% 20 mL INFILTRATI ONE (18:40)
[2017-05-12] MEDS ORDERED: XYLOCAINE 1% MPF 5 mL ONE (18:47)
[2017-05-12] MEDS ORDERED: NORCO 5/325 PO ONE (20:10)
--- NOTE | 2017-05-12 20:38 | Emergency Department Report ---
ED General Adult HPI - General Chief complaint: Dental/Oral Stated complaint: ABSCESS Time Seen by Provider: 05/12/17 18:09 Source: patient Mode of arrival: Ambulatory Limitations: No Limitations - History of Present Illness Initial comments: He is a 51-year-old male asthma by history of dental caries who presents with upper left tooth pain. Patient states that he has been given antibiotics for his tooth pain however he stopped using his antibiotics which were given to him in the ED about a week ago due to him having diarrhea from it. He's noticed more swelling from his tooth and he states that the pain is an 8 out of 10 chewing makes it worse as a sharp pain that radiates throughout his mouth. Patient denies having any fevers or chills or any nausea or vomiting. Patient states that he came to the ED to see if he can get his abscess drained. - Related Data Previous Rx's Medication Instructions Recorded Last Taken Type QUEtiapine [SEROquel] 200 mg PO HS #20 tablet 03/13/17 Unknown Rx Acetaminophen [Tylenol Arthritis] 650 mg PO Q6HR PRN #30 tablet.er 04/26/17 Unknown Rx Albuterol Sulfate [Proair 90 mcg IH Q4HR PRN #2 aer.pow.ba 04/26/17 Unknown Rx Respiclick] Benzonatate [Tessalon Perles] 100 mg PO Q8HR PRN #30 capsule 04/26/17 Unknown Rx Fluticasone [Flonase] 1 spray NS QDAY #1 bottle 04/26/17 Unknown Rx Ondansetron [Zofran Odt] 4 mg PO Q8HR PRN #20 tab.rapdis 04/26/17 Unknown Rx Potassium Chloride [Klor-Con] 20 meq PO BID #14 packet 04/26/17 Unknown Rx Clindamycin [Clindamycin CAP] 300 mg PO Q8H #30 cap 05/03/17 Unknown Rx Ibuprofen [Motrin 600 MG tab] 600 mg PO Q8H PRN 10 Days #30 05/09/17 Unknown Rx tablet metroNIDAZOLE [Flagyl] 500 mg PO Q12HR 7 Days #14 tab 05/09/17 Unknown Rx Allergies Allergy/AdvReac Type Severity Reaction Status Date / Time No Known Allergies Allergy Verified 05/12/17 15:52 ED Review of Systems ROS: Stated complaint: ABSCESS Other details as noted in HPI Constitutional: denies: chills, fever Eyes: denies: eye pain, eye discharge, vision change ENT: dental pain. denies: ear pain, throat pain Respiratory: denies: cough, shortness of breath, wheezing Cardiovascular: denies: chest pain, palpitations Endocrine: no symptoms reported Gastrointestinal: denies: abdominal pain, nausea, diarrhea Genitourinary: denies: urgency, dysuria Musculoskeletal: denies: back pain, joint swelling, arthralgia Skin: denies: rash, lesions Neurological: denies: headache, weakness, paresthesias Psychiatric: denies: anxiety, depression Hematological/Lymphatic: denies: easy bleeding, easy bruising ED Past Medical Hx - Past Medical History Previous Medical History?: Yes Hx Arthritis: Yes Hx Psychiatric Treatment: Yes (bipolar schiz) Hx Asthma: Yes Additional medical history: Chronic bronchitis - Surgical History Past Surgical History?: Yes Additional Surgical History: l) hand surg umbical hernia t&A. left knee surg - 2014 - Social History Smoking Status: Current Every Day Smoker Substance Use Type: Cocaine, Marijuana - Medications Home Medications: Home Medications Medication Instructions Recorded Confirmed Last Taken Type QUEtiapine [SEROquel] 200 mg PO HS #20 tablet 03/13/17 Unknown Rx Acetaminophen [Tylenol Arthritis] 650 mg PO Q6HR PRN #30 tablet.er 04/26/17 Unknown Rx Albuterol Sulfate [Proair 90 mcg IH Q4HR PRN #2 aer.pow.ba 04/26/17 Unknown Rx Respiclick] Benzonatate [Tessalon Perles] 100 mg PO Q8HR PRN #30 capsule 04/26/17 Unknown Rx Fluticasone [Flonase] 1 spray NS QDAY #1 bottle 04/26/17 Unknown Rx Ondansetron [Zofran Odt] 4 mg PO Q8HR PRN #20 tab.rapdis 04/26/17 Unknown Rx Potassium Chloride [Klor-Con] 20 meq PO BID #14 packet 04/26/17 Unknown Rx Clindamycin [Clindamycin CAP] 300 mg PO Q8H #30 cap 05/03/17 Unknown Rx Ibuprofen [Motrin 600 MG tab] 600 mg PO Q8H PRN 10 Days #30 05/09/17 Unknown Rx tablet metroNIDAZOLE [Flagyl] 500 mg PO Q12HR 7 Days #14 tab 05/09/17 Unknown Rx ED Physical Exam - General Limitations: No Limitations General appearance: alert, in no apparent distress - Head Head exam: Present: atraumatic, normocephalic - Eye Eye exam: Present: normal appearance - ENT ENT exam: Present: other (poor dentition swelling in the left upper molar) - Neck Neck exam: Present: normal inspection - Respiratory Respiratory exam: Present: normal lung sounds bilaterally. Absent: respiratory distress - Cardiovascular Cardiovascular Exam: Present: regular rate, normal rhythm. Absent: systolic murmur, diastolic murmur, rubs, gallop - GI/Abdominal GI/Abdominal exam: Present: soft, normal bowel sounds - Rectal Rectal exam: Present: deferred - Extremities Exam Extremities exam: Present: normal inspection - Back Exam Back exam: Present: normal inspection - Neurological Exam Neurological exam: Present: alert, oriented X3 - Psychiatric Psychiatric exam: Present: normal affect, normal mood - Skin Skin exam: Present: warm, dry, intact, normal color. Absent: rash ED Course Vital Signs 05/12/17 05/12/17 15:53 20:43 Temperature 98.6 F Pulse Rate 89 Respiratory 18 18 Rate Blood Pressure 120/93 O2 Sat by Pulse 97 Oximetry - I & D Jaw Type of Procedure: Simple Site: left upper molar Blade Size: 18 natty needle Progress: Patient tolerated procedure well drained 2 mL of pus. This film better after the procedure. - Nerve Block Consent Obtained: verbal consent Time Out Performed: Yes Local Anesthetic Used: Lidocaine 1% Side: left Intraoral Nerve Block: superior alveolar, mental Complications: none Patient Tolerated Procedure: well ED Medical Decision Making - Medical Decision Making Chief Medical diagnosis: Periapical abscess Differential Medical diagnosis: Pulptits, gingivitis I will do a dental block and I will incise and drain dental abscess. I incised and drained dental abscess patient is feeling better also patient home, [facility] patient still has antibiotics he was given and does not need a refill of his antibiotics. Critical care attestation.: If time is entered above; I have spent that time in minutes in the direct care of this critically ill patient, excluding procedure time. ED Disposition Clinical Impression: Toothache, Dental abscess Disposition: DC- TO HOME OR SELFCARE Is pt being admited?: No Does the pt Need Aspirin: No Condition: Stable Instructions: Dental Abscess (ED) Referrals: JESUS MAN MD [Staff Physician] - 3-5 Days
== END 2017-05-12 21:29 | disposition home or self-care (01) ==
LOC: ED 15:31
DX: K04.7 Periapical abscess without sinus (principal); K59.00 Constipation, unspecified; J45.909 Unspecified asthma, uncomplicated; F17.200 Nicotine dependence, unspecified, uncomplicated; F14.10 Cocaine abuse, uncomplicated; F12.10 Cannabis abuse, uncomplicated

== ENCOUNTER 2017-07-15 15:19 | Emergency (ER) | payer MEDICAID, MEDICARE ==
[2017-07-15 16:28] VITALS: BP 145/94
--- NOTE | 2017-07-15 18:19 | Emergency Department Report ---
ED Extremity Problem HPI - General Chief complaint: Extremity Injury, Upper Stated complaint: NUMBNESS IN ARM Time Seen by Provider: 07/15/17 17:25 Source: patient Mode of arrival: Ambulatory Limitations: No Limitations - History of Present Illness Initial comments: There is a 51-year-old -[place] male who is presenting with pain to the left hand. Patient states that his hand was caught yesterday in a mop that then broke his wondered some pieces of fiberglass into his hand. Patient states he was able to pick out the small piece of fiberglass but now has pain and soreness and a numb sensation to the first through third digit on the left hand. Patient states he has full range of motion but he's got a pins and needle sensation. Patient states this is a 4 out of 10 pain - Related Data Previous Rx's Medication Instructions Recorded Last Taken Type QUEtiapine [SEROquel] 200 mg PO HS #20 tablet 03/13/17 Unknown Rx Acetaminophen [Tylenol Arthritis] 650 mg PO Q6HR PRN #30 tablet.er 04/26/17 Unknown Rx Albuterol Sulfate [Proair 90 mcg IH Q4HR PRN #2 aer.pow.ba 04/26/17 Unknown Rx Respiclick] Benzonatate [Tessalon Perles] 100 mg PO Q8HR PRN #30 capsule 04/26/17 Unknown Rx Fluticasone [Flonase] 1 spray NS QDAY #1 bottle 04/26/17 Unknown Rx Ondansetron [Zofran Odt] 4 mg PO Q8HR PRN #20 tab.rapdis 04/26/17 Unknown Rx Potassium Chloride [Klor-Con] 20 meq PO BID #14 packet 04/26/17 Unknown Rx Clindamycin [Clindamycin CAP] 300 mg PO Q8H #30 cap 05/03/17 Unknown Rx Ibuprofen [Motrin 600 MG tab] 600 mg PO Q8H PRN 10 Days #30 05/09/17 Unknown Rx tablet metroNIDAZOLE [Flagyl] 500 mg PO Q12HR 7 Days #14 tab 05/09/17 Unknown Rx predniSONE [Deltasone] 20 mg PO QDAY #5 tab 07/15/17 Unknown Rx Allergies Allergy/AdvReac Type Severity Reaction Status Date / Time No Known Allergies Allergy Verified 05/12/17 15:52 ED Review of Systems ROS: Stated complaint: NUMBNESS IN ARM Other details as noted in HPI Comment: All other systems reviewed and negative ED Past Medical Hx - Past Medical History Hx Arthritis: Yes Hx Psychiatric Treatment: Yes (bipolar schiz) Hx Asthma: Yes Additional medical history: Chronic bronchitis - Surgical History Additional Surgical History: l) hand surg umbical hernia t&A. left knee surg - 2014 - Social History Smoking Status: Current Some Day Smoker Substance Use Type: Marijuana - Medications Home Medications: Home Medications Medication Instructions Recorded Confirmed Last Taken Type QUEtiapine [SEROquel] 200 mg PO HS #20 tablet 03/13/17 Unknown Rx Acetaminophen [Tylenol Arthritis] 650 mg PO Q6HR PRN #30 tablet.er 04/26/17 Unknown Rx Albuterol Sulfate [Proair 90 mcg IH Q4HR PRN #2 aer.pow.ba 04/26/17 Unknown Rx Respiclick] Benzonatate [Tessalon Perles] 100 mg PO Q8HR PRN #30 capsule 04/26/17 Unknown Rx Fluticasone [Flonase] 1 spray NS QDAY #1 bottle 04/26/17 Unknown Rx Ondansetron [Zofran Odt] 4 mg PO Q8HR PRN #20 tab.rapdis 04/26/17 Unknown Rx Potassium Chloride [Klor-Con] 20 meq PO BID #14 packet 04/26/17 Unknown Rx Clindamycin [Clindamycin CAP] 300 mg PO Q8H #30 cap 05/03/17 Unknown Rx Ibuprofen [Motrin 600 MG tab] 600 mg PO Q8H PRN 10 Days #30 05/09/17 Unknown Rx tablet metroNIDAZOLE [Flagyl] 500 mg PO Q12HR 7 Days #14 tab 05/09/17 Unknown Rx predniSONE [Deltasone] 20 mg PO QDAY #5 tab 07/15/17 Unknown Rx ED Physical Exam - General Limitations: No Limitations General appearance: alert, in no apparent distress - Head Head exam: Present: atraumatic, normocephalic - Eye Eye exam: Present: normal appearance - ENT ENT exam: Present: mucous membranes moist - Neck Neck exam: Present: normal inspection - Respiratory Respiratory exam: Present: normal lung sounds bilaterally. Absent: respiratory distress, wheezes, rales - Cardiovascular Cardiovascular Exam: Present: regular rate, normal rhythm. Absent: systolic murmur, diastolic murmur, rubs, gallop - GI/Abdominal GI/Abdominal exam: Present: soft, normal bowel sounds. Absent: distended, tenderness, guarding - Rectal Rectal exam: Present: deferred - Extremities Exam Extremities exam: Present: normal inspection - Back Exam Back exam: Present: normal inspection - Neurological Exam Neurological exam: Present: alert, oriented X3 - Psychiatric Psychiatric exam: Present: normal affect, normal mood - Skin Skin exam: Present: warm, dry, intact, normal color. Absent: rash ED Course Vital Signs 07/15/17 16:23 Temperature 97.9 F Pulse Rate 71 Respiratory 16 Rate Blood Pressure 145/94 O2 Sat by Pulse 97 Oximetry ED Medical Decision Making - Medical Decision Making Patient is a 51-year-old [place] male who is having some paresthesias to the left hand in the radial distribution. Patient's hand was caught in a mop apparatus briefly had to be unclamped. I don't see any trauma associated with this injury however he states he has a pins and needle sensation. Patient will be given a short course of prednisone and will be discharged follow-up with orthopedic Critical care attestation.: If time is entered above; I have spent that time in minutes in the direct care of this critically ill patient, excluding procedure time. ED Disposition Clinical Impression: Paresthesia Disposition: DC-01 TO HOME OR SELFCARE Is pt being admited?: No Does the pt Need Aspirin: No Condition: Stable Instructions: Paresthesia (ED) Prescriptions: predniSONE [Deltasone] 20 mg PO QDAY #5 tab Referrals: CHILANGO HICKEY MD [Staff Physician] - 3-5 Days
== END 2017-07-15 18:25 | disposition home or self-care (01) ==
LOC: ED 15:19
DX: R20.2 Paresthesia of skin (principal); F31.9 Bipolar disorder, unspecified; F20.9 Schizophrenia, unspecified; J45.909 Unspecified asthma, uncomplicated; F17.200 Nicotine dependence, unspecified, uncomplicated
CPT/HCPCS: 99282

== ENCOUNTER 2017-08-04 11:41 | Outpatient (CLI) | payer MEDICARE ==
--- NOTE | 2017-08-04 12:23 | XRay Report ---
Bilateral knees in standing single view: History: Pain in left and right knee. Findings: Narrowing of the medial and patellofemoral and lateral compartment of right and left knee generally more pronounced in the left knee joint. Sclerotic articular surfaces with peripheral osteophytes suggesting degenerative changes. Impression: Degenerative changes right and left knee joint being more pronounced at the medial compartment and lateral compartment of left knee joint.
== END 2017-08-04 11:42 | disposition home or self-care (01) ==
LOC: XRAY 11:41
PROVIDERS: ATTEND Orthopaedic Surgery
DX: M17.0 Bilateral primary osteoarthritis of knee (principal)
CPT/HCPCS: 73565

== ENCOUNTER 2017-08-09 15:31 | Emergency (ER) | payer MEDICARE | END 2017-08-09 19:23 | disposition left against medical advice (07) | LOC: ED 15:31 | DX: R21 Rash and other nonspecific skin eruption (principal); Z53.21 Procedure and treatment not carried out due to patient leaving prior to being seen by health care provider ==

== ENCOUNTER 2017-08-10 19:41 | Emergency (ER) | payer MEDICARE ==
[2017-08-10 23:57] VITALS: BP 138/99
--- NOTE | 2017-08-11 01:22 | Emergency Department Report ---
ED Headache HPI - General Chief Complaint: Headache Stated Complaint: HEADACHES/MIGRAINE Time Seen by Provider: 08/11/17 01:09 Source: patient Exam Limitations: no limitations - History of Present Illness Initial Comments: Patient is 51 years old male with no significant past medical history except for psychiatric problems and. Patient presented with 3 weeks history of headache on and off. Patient denied any fever, neck pain or neck stiffness. No weakness numbness or tingling sensation. No bowel or bladder incontinence. Patient also complaining of small bumps that appeared on his head and his hands for the last few days. Timing/Duration: 1 week Quality: moderate Head Injury Location: occipital Recent Head Trauma: no recent headache/trauma, frequent headaches Modifying Factors: worse with: cold therapy, exposure to light, immobilization, medication, movement, rest, other Associated Symptoms: denies: denies symptoms, confusion, fatigue, facial pain, fever/chills, flushing, loss of consciousness, nausea/vomiting, nasal congestion , nasal drainage, numbness in legs/feet, rash, seizures, sinus infection, stiff neck, vision changes, weakness, other Allergies/Adverse Reactions: Allergies No Known Allergies Allergy (Verified 08/10/17 19:49) Home Medications: Ambulatory Orders QUEtiapine [SEROquel] 200 mg PO HS #20 tablet 03/13/17 Acetaminophen [Tylenol Arthritis] 650 mg PO Q6HR PRN #30 tablet.er 04/26/17 Albuterol Sulfate [Proair Respiclick] 90 mcg IH Q4HR PRN #2 aer.pow.ba 04/26/17 Benzonatate [Tessalon Perles] 100 mg PO Q8HR PRN #30 capsule 04/26/17 Fluticasone [Flonase] 1 spray NS QDAY #1 bottle 04/26/17 Ondansetron [Zofran Odt] 4 mg PO Q8HR PRN #20 tab.rapdis 04/26/17 Potassium Chloride [Klor-Con] 20 meq PO BID #14 packet 04/26/17 Clindamycin [Clindamycin CAP] 300 mg PO Q8H #30 cap 05/03/17 Ibuprofen [Motrin 600 MG tab] 600 mg PO Q8H PRN 10 Days #30 tablet 05/09/17 metroNIDAZOLE [Flagyl] 500 mg PO Q12HR 7 Days #14 tab 05/09/17 predniSONE [Deltasone] 20 mg PO QDAY #5 tab 07/15/17 ED Review of Systems ROS: Stated complaint: HEADACHES/MIGRAINE Other details as noted in HPI Comment: All other systems reviewed and negative Constitutional: denies: chills, fever, weakness Eyes: denies: vision change Respiratory: denies: cough, shortness of breath, SOB with exertion Cardiovascular: denies: chest pain, palpitations Gastrointestinal: denies: abdominal pain, nausea, vomiting, diarrhea, constipation Musculoskeletal: denies: back pain Skin: denies: rash, lesions Neurological: headache. denies: weakness, numbness, paresthesias, confusion, abnormal gait, vertigo ED Past Medical Hx - Past Medical History Hx Arthritis: Yes Hx Psychiatric Treatment: Yes (bipolar schiz, depression) Hx Asthma: Yes Additional medical history: Chronic bronchitis - Surgical History Additional Surgical History: l) hand surg umbical hernia t&A. left knee surg - 2014 - Social History Smoking Status: Current Some Day Smoker Substance Use Type: Marijuana - Medications Home Medications: Home Medications Medication Instructions Recorded Confirmed Last Taken Type QUEtiapine [SEROquel] 200 mg PO HS #20 tablet 03/13/17 Unknown Rx Acetaminophen [Tylenol Arthritis] 650 mg PO Q6HR PRN #30 tablet.er 04/26/17 Unknown Rx Albuterol Sulfate [Proair 90 mcg IH Q4HR PRN #2 aer.pow.ba 04/26/17 Unknown Rx Respiclick] Benzonatate [Tessalon Perles] 100 mg PO Q8HR PRN #30 capsule 04/26/17 Unknown Rx Fluticasone [Flonase] 1 spray NS QDAY #1 bottle 04/26/17 Unknown Rx Ondansetron [Zofran Odt] 4 mg PO Q8HR PRN #20 tab.rapdis 04/26/17 Unknown Rx Potassium Chloride [Klor-Con] 20 meq PO BID #14 packet 04/26/17 Unknown Rx Clindamycin [Clindamycin CAP] 300 mg PO Q8H #30 cap 05/03/17 Unknown Rx Ibuprofen [Motrin 600 MG tab] 600 mg PO Q8H PRN 10 Days #30 05/09/17 Unknown Rx tablet metroNIDAZOLE [Flagyl] 500 mg PO Q12HR 7 Days #14 tab 05/09/17 Unknown Rx predniSONE [Deltasone] 20 mg PO QDAY #5 tab 07/15/17 Unknown Rx ED Physical Exam - General Limitations: No Limitations General appearance: alert, in no apparent distress - Head Head exam: Present: atraumatic, normocephalic - Eye Eye exam: Present: normal appearance, PERRL - ENT ENT exam: Present: normal exam, normal orophraynx, mucous membranes moist - Neck Neck exam: Present: normal inspection, full ROM. Absent: tenderness, meningismus, lymphadenopathy, thyromegaly - Respiratory Respiratory exam: Present: normal lung sounds bilaterally. Absent: respiratory distress, wheezes, rales, rhonchi, stridor, chest wall tenderness, accessory muscle use, decreased breath sounds, prolonged expiratory - Cardiovascular Cardiovascular Exam: Present: regular rate, normal rhythm, normal heart sounds - GI/Abdominal GI/Abdominal exam: Present: soft, normal bowel sounds. Absent: distended, tenderness, guarding, rebound, rigid, organomegaly, mass, bruit, pulsatile mass - Extremities Exam Extremities exam: Present: normal inspection, full ROM, normal capillary refill - Back Exam Back exam: Present: normal inspection, full ROM. Absent: CVA tenderness (L) - Neurological Exam Neurological exam: Present: alert, oriented X3, CN II-XII intact - Skin Skin exam: Present: warm, intact, normal color. Absent: cyanosis, diaphoretic ED Course Vital Signs 08/10/17 08/10/17 08/11/17 19:49 23:51 00:45 Temperature 98.2 F 98.4 F Pulse Rate 93 H 73 73 Respiratory 18 18 24 Rate Blood Pressure 137/102 138/99 O2 Sat by Pulse 97 97 99 Oximetry 08/11/17 00:59 Temperature 97.6 F Pulse Rate Respiratory Rate Blood Pressure O2 Sat by Pulse Oximetry ED Medical Decision Making - Radiology Data Radiology results: report reviewed Referring Physician: ANNAMARIA BANG Patient Name: CHILANGO RICH Date of : 1965 Sex: Male Report Date: 2017-08-11 Report Status: Finalized Findings [facility] [address] [place] [address] Cat Scan Report Signed Patient: CHILANGO RICH MR#: [id number] : 1965 Acct:[id number] Age/Sex: 51 / M ADM Date: 08/10/17 Loc: ED Attending Dr: Ordering Physician: ANNAMARIA BANG Date of Service: 08/11/17 Procedure(s): CT head/brain wo con Accession Number(s): [id number] cc: ANNAMARIA BANG FINAL REPORT EXAM: CT HEAD/BRAIN WO CON HISTORY: headache TECHNIQUE: Routine axial imaging was obtained of the brain without IV contrast. There are no previous studies available for comparison. FINDINGS: There is no evidence of acute stroke or hemorrhage. The ventricular system is symmetric in size. There is a cavum septum pellucidum and vergae representing normal variant. The basal cisterns appear normal. The visualized sinuses are clear. The mastoid air cells are well pneumatized. IMPRESSION: No acute intracranial process. Transcribed By: RB Dictated By: CHILANGO EASTMAN MD Electronically Authenticated By: CHILANGO EASTMAN MD Signed Date/Time: 08/11/17212 DD/ 2 TD/TT: 08/11/17212 Critical care attestation.: If time is entered above; I have spent that time in minutes in the direct care of this critically ill patient, excluding procedure time. ED Disposition Clinical Impression: Headache, Impetigo Disposition: -01 TO HOME OR SELFCARE Is pt being admited?: No Condition: Stable Instructions: Acute Headache (ED), Impetigo (ED) Referrals: PRIMARY CAREMD [Primary Care Provider] - 3-5 Days
--- NOTE | 2017-08-11 02:18 | Cat Scan Report ---
FINAL REPORT EXAM: CT HEAD/BRAIN WO CON HISTORY: headache TECHNIQUE: Routine axial imaging was obtained of the brain without IV contrast. There are no previous studies available for comparison. FINDINGS: There is no evidence of acute stroke or hemorrhage. The ventricular system is symmetric in size. There is a cavum septum pellucidum and vergae representing normal variant. The basal cisterns appear normal. The visualized sinuses are clear. The mastoid air cells are well pneumatized. IMPRESSION: No acute intracranial process.
[2017-08-11] MEDS ORDERED: TORADOL IM ONE (02:48)
== END 2017-08-11 03:09 | disposition home or self-care (01) ==
LOC: ED 19:41
DX: S09.8XXA Other specified injuries of head, initial encounter (principal); F31.9 Bipolar disorder, unspecified; F20.9 Schizophrenia, unspecified; J45.909 Unspecified asthma, uncomplicated; F17.200 Nicotine dependence, unspecified, uncomplicated; M19.90 Unspecified osteoarthritis, unspecified site; X58.XXXA Exposure to other specified factors, initial encounter; Y93.89 Activity, other specified; Y92.89 Other specified places as the place of occurrence of the external cause; Y99.8 Other external cause status
CPT/HCPCS: 70450; 96372; 99283; J1885

== ENCOUNTER 2017-09-23 09:44 | Day surgery (SDC) | payer MEDICARE ==
[~2017-09-23 09:44] MED LIST: ANCEF/STERILE WATER 2 GM/20 ML IV NR; LACTATED RINGERS 1,000 ML IV SCH; VERSED IV NR
--- NOTE | 2017-09-23 12:23 | Anesthesia Day of Surgery ---
Anesthesia Day of Surgery - Day of Surgery Patient Examined: Yes Patient H&P Reviewed: Yes Patient is NPO: Yes
[2017-09-23] MEDS ORDERED: ZOFRAN IV PRN (12:24)
--- NOTE | 2017-09-23 12:24 | Anesthesia Consultation ---
Anesthesia Consult and Med Hx Date of service: 09/23/17 - Airway Anesthetic Teeth Evaluation: Poor ROM Head & Neck: Adequate Mental/Hyoid Distance: Adequate Mallampati Class: Class II Intubation Access Assessment: Probably Good - Pulmonary Exam CTA: Yes - Cardiac Exam Cardiac Exam: RRR - Pre-Operative Health Status ASA Pre-Surgery Classification: ASA2 Proposed Anesthetic Plan: General (Ga with LMA ok) - Pulmonary Hx Smoking: Yes (1 PACK PER WEEK) Hx Asthma: Yes Hx Sleep Apnea: No (PRECIOUS PRE SCREEN HIGH RISK) - Cardiovascular System Hx Hypertension: No - Central Nervous System Hx Psychiatric Problems: Yes (HX PSYCHOSIS) - Other Systems Hx Alcohol Use: Yes (Patient states drink beer occ.) Hx Substance Use: Yes (MARIJUANA OCC) Hx Cancer: No
[2017-09-23] MEDS ORDERED: DIPRIVAN 10 MG/ML IV ONE (13:28)
[2017-09-23] MEDS ORDERED: SUBLIMAZE ONE (16:01)
--- NOTE | 2017-09-23 17:13 | Procedure Note ---
Date of procedure: 09/23/17 Pre-op diagnosis: left carpal tunnnel syndrome Post-op diagnosis: same Procedure: Endoscopic Left Carpal Tunnel Release Procedure The patient was brought to the OR and placed on the OR table supine, next given general anesthesia with MAC...the left upper extremity prepped and draped in usual sterile fashion. A time-out procedure done to identify the patient and correct operative site. The was exsanguated followed by inflation of the pneumatic tourniquet to 250mm Hg. A volar incision made along the distal wrist crease and down thru subcutaneous tissue, the superficial flexor sheath/fascia opened and under Loupe magnification entered next synovial fruit pitter and dialators used to open up the carpal canal. The arthroscope inserted into the carpal canal in line with the 4th metacarpal, the distal extent of the transverse carpal ligament visualized prior to elevating the arthroscopic knive , next the ligament released from distal to proximal care taken to remain inline with the 4th metacarpal after complete transection of the carpal ligament the fatty tissue seen at the top falling into view. The tight carpal canal noted upon dilation released with the free flow to arthroscope at the conclusion. The wound copiously irrigated and closed in standard routine fashion , post op dressing applied. Extubated and taken to PACU in stable condition Anesthesia: MAC Surgeon: CHILANGO HICKEY Estimated blood loss: minimal Condition: stable Disposition: PACU
[2017-09-23] MEDS ORDERED: NORCO 7.5/325 PO PRN (17:15)
[2017-09-23] MEDS ORDERED: NORCO 5/325 ONE (17:20)
[2017-09-23] MEDS: DILAUDID IV PRN ×2 (17:20→17:30)
[2017-09-23 17:52] VITALS: BP 110/85
--- NOTE | 2017-09-23 19:51 | Post Anesthesia Evaluation ---
- Post Anesthesia Evaluation Patient Participated: Yes Airway Patent: Yes Stable Respiratory Function: Yes Nausea/Vomiting: No Temp > 96.8F: Yes Pain Manageable: Yes Adequeate Hydration: Yes Anesthesia Complications: No
== END 2017-09-23 09:45 | disposition home or self-care (01) ==
LOC: OR 09:44
PROVIDERS: ATTEND Orthopaedic Surgery
DX: G56.02 Carpal tunnel syndrome, left upper limb (principal); J45.909 Unspecified asthma, uncomplicated; F29 Unspecified psychosis not due to a substance or known physiological condition; F17.210 Nicotine dependence, cigarettes, uncomplicated
CPT/HCPCS: 29848; J0690; J1170; J2250; J2704; J3010; J7120

== ENCOUNTER 2017-10-07 07:46 | Day surgery (SDC) | payer MEDICARE ==
--- NOTE | 2017-10-05 11:00 | Anesthesia Consultation ---
Anesthesia Consult and Med Hx Date of service: 10/05/17 - Airway Anesthetic Teeth Evaluation: Good, Chipped (two posterior) ROM Head & Neck: Adequate Mental/Hyoid Distance: Adequate Mallampati Class: Class II Intubation Access Assessment: Probably Good - Pulmonary Exam CTA: Yes - Cardiac Exam Cardiac Exam: RRR - Pre-Operative Health Status ASA Pre-Surgery Classification: ASA2 Proposed Anesthetic Plan: General - Pulmonary Hx Smoking: Yes (1 PACK PER WEEK) Hx Asthma: Yes (has an inhaler but has not needed it in about one year) Hx Sleep Apnea: No (PRECIOUS PRE SCREEN HIGH RISK) - Cardiovascular System Hx Hypertension: No - Central Nervous System Hx Psychiatric Problems: Yes (Depression, Bipolar, Sshizophrenia - has been off the medication without sx) - Gastrointestinal Hx Gastroesophageal Reflux Disease: No (history of PONV after carpal tunnel surgery in the recent past) - Other Systems Hx Alcohol Use: Yes (Patient states drink beer occ.) Hx Substance Use: Yes (MARIJUANA OCC. last time was about a year ago) Hx Cancer: No
[2017-10-05 11:09] LABS: Hematocrit 45.8 % (35.5-45.6); Hemoglobin 15.5 gm/dl (11.8-15.2); Mean Corpuscular HGB Conc 34 % (32-34); Mean Corpuscular Hemoglobin 30 pg (28-32); Mean Corpuscular Volume 90 fl (84-94); Platelet Count 245 K/mm3 (140-440); Red Blood Count 5.09 M/mm3 (3.65-5.03); Red Cell Distribution Width 13.5 % (13.2-15.2)
[2017-10-05 11:21] LABS: Partial Thromboplastin Time 31.5 Sec. (24.2-36.6)
[2017-10-05 13:00] LABS: Platelet Estimate Consistent w Auto; RBC Morphology Normal; Total Cells Counted 100
[2017-10-05 13:12] LABS: Alanine Aminotransferase 28 units/L (7-56); Albumin 4.4 g/dL (3.9-5); BUN/Creatinine Ratio 9; Blood Urea Nitrogen 7 mg/dL (9-20); Calcium 9.4 mg/dL (8.4-10.2); Hemolysis Index 28
[~2017-10-07 07:46] MED LIST changes: -ANCEF/STERILE WATER 2 GM/20 ML IV NR; +DECADRON IV NR; +MARCAINE 0.5% INFILTRATI NR; +NACL P/F VIAL (10 ML) INFILTRATI NR; +NEURONTIN PO NR; +TRANSDERM-SCOP TD NR; +XYLOCAINE 1% 20 mL INFILTRATI NR; +ZOFRAN IV NR
[2017-10-07] MEDS ORDERED: DEPO-MEDROL ONE (08:32)
[2017-10-07] MEDS ORDERED: MARCAINE 0.5% 0 ML INFILTRATI ONE (08:32)
[2017-10-07 10:35] VITALS: BP 142/86
[2017-10-07] MEDS ORDERED: ANCEF/STERILE WATER 2 GM/20 ML IV NR (11:00)
== END 2017-10-07 07:47 | disposition home or self-care (01) ==
LOC: OR 07:46 → EDSTATUS 08:00
PROVIDERS: ATTEND Orthopaedic Surgery
DX: M19.90 Unspecified osteoarthritis, unspecified site (principal); J45.909 Unspecified asthma, uncomplicated; F31.9 Bipolar disorder, unspecified; F20.9 Schizophrenia, unspecified; F17.210 Nicotine dependence, cigarettes, uncomplicated; Z53.8 Procedure and treatment not carried out for other reasons; Z79.01 Long term (current) use of anticoagulants
CPT/HCPCS: 36415; 80053; 85007; 85025; 85610; 85730; J1030

== ENCOUNTER 2018-02-07 18:18 | Emergency (ER) | payer MEDICARE ==
[2018-02-07 19:45] LABS: Hemoglobin 16.6 gm/dl (11.8-15.2); Mean Corpuscular HGB Conc 33 % (32-34); Mean Corpuscular Hemoglobin 30 pg (28-32); Mean Corpuscular Volume 91 fl (84-94); Platelet Count 267 K/mm3 (140-440); Red Blood Count 5.51 M/mm3 (3.65-5.03); Red Cell Distribution Width 14.3 % (13.2-15.2)
[2018-02-07 20:10] LABS: BUN/Creatinine Ratio 7; Blood Urea Nitrogen 8 mg/dL (9-20); Calcium 10.4 mg/dL (8.4-10.2); Hemolysis Index 2
--- NOTE | 2018-02-07 21:22 | Cat Scan Report ---
FINAL REPORT EXAM: CT HEAD/BRAIN WO CON HISTORY: syncope TECHNIQUE: 2.5 millimeter axial images from the skullbase to the vertex. Comparison: None FINDINGS: There is no evidence of an acute intracranial process, intracranial hemorrhage or mass effect. The ventricles are normal size. The visualized portions of the orbits, paranasal and mastoid sinuses are unremarkable. The bony structures are unremarkable in appearance. IMPRESSION: 1. No evidence of an acute intracranial process, intracranial hemorrhage or mass effect.
[2018-02-07] MEDS ORDERED: NACL 0.9% 1000 ML 1,000 ML IV ONE (23:11)
--- NOTE | 2018-02-07 23:16 | Emergency Department Report ---
ED Syncope HPI - General Chief Complaint: Syncope Stated Complaint: LIGHT HEADED Time Seen by Provider: 02/07/18 22:18 Source: patient Exam Limitations: no limitations - History of Present Illness Initial Comments: 52-year-old male with history of schizophrenia presents to ED after syncopal episode. He states over the last 3 days and feeling dehydrated, thirsty and has been sweating a lot. 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 Patient reports after being clean for 3 years, he relapsed and decided to use crack yesterday and today, just a few hours prior to syncopal episode. Patient denies having had chest pain, shortness of breath, palpitations. Reports headache. Patient states he was having conversation with his boss when he passed out. Timing/Prior Episodes: single episode today Precipitating Factors: Positive: diaphoresis, lightheadedness Context: standing Loss of Consciousness: brief (seconds) Current Symptoms: back to normal, headache. denies: chest pain, nausea, weakness - Related Data Allergies/Adverse Reactions: Allergies No Known Allergies Allergy (Verified 08/10/17 19:49) Home Medications: Ambulatory Orders Albuterol Sulfate [Proair Respiclick] 90 mcg IH Q4HR PRN #2 aer.pow.ba 04/26/17 Ibuprofen [Motrin 600 MG tab] 600 mg PO Q8H PRN 10 Days #30 tablet 05/09/17 QUEtiapine [SEROquel] 400 mg PO HS 09/20/17 Sertraline [Zoloft] 100 mg PO QDAY 09/20/17 traZODone [Desyrel] 100 mg PO QHS 09/20/17 Zolpidem [Ambien] 10 mg PO QHS #14 tab 10/22/17 Zolpidem [Ambien] 10 mg PO QHS PRN #15 tab 10/22/17 oxyCODONE [Roxicodone TAB] 5 mg PO Q6HR PRN #40 tablet 10/22/17 oxyCODONE [Roxicodone TAB] 5 mg PO Q6HR PRN #40 tablet 10/22/17 ED Review of Systems ROS: Stated complaint: LIGHT HEADED Other details as noted in HPI Comment: All other systems reviewed and negative Constitutional: diaphoresis. denies: chills, fever Respiratory: denies: shortness of breath Cardiovascular: denies: chest pain, palpitations Endocrine: excessive sweating, increased thirst Gastrointestinal: denies: abdominal pain, nausea, vomiting Neurological: headache ED Past Medical Hx - Past Medical History Hx Hypertension: No Hx Congestive Heart Failure: No Hx Diabetes: No Hx Arthritis: Yes Hx Headaches / Migraines: Yes (MIGRAINES) Hx Psychiatric Treatment: Yes (bipolar schiz, depression) Hx Asthma: Yes Hx COPD: No Hx HIV: No Additional medical history: Chronic bronchitis - Surgical History Additional Surgical History: l) hand surg umbical hernia t&A. left knee surg - 2014 - Social History Smoking Status: Current Every Day Smoker Substance Use Type: Alcohol, Marijuana - Medications Home Medications: Home Medications Medication Instructions Recorded Confirmed Last Taken Type Albuterol Sulfate [Proair 90 mcg IH Q4HR PRN #2 aer.pow.ba 04/26/17 10/21/17 Rx Respiclick] Ibuprofen [Motrin 600 MG tab] 600 mg PO Q8H PRN 10 Days #30 05/09/17 10/21/17 Rx tablet QUEtiapine [SEROquel] 400 mg PO HS 09/20/17 10/21/17 09/22/17 History Sertraline [Zoloft] 100 mg PO QDAY 09/20/17 10/12/17 09/22/17 History traZODone [Desyrel] 100 mg PO QHS 09/20/17 10/12/17 09/22/17 History Zolpidem [Ambien] 10 mg PO QHS #14 tab 10/22/17 Unknown Rx Zolpidem [Ambien] 10 mg PO QHS PRN #15 tab 10/22/17 Unknown Rx oxyCODONE [Roxicodone TAB] 5 mg PO Q6HR PRN #40 tablet 10/22/17 Unknown Rx oxyCODONE [Roxicodone TAB] 5 mg PO Q6HR PRN #40 tablet 10/22/17 Unknown Rx ED Physical Exam - General Limitations: No Limitations General appearance: alert, in no apparent distress - Head Head exam: Present: atraumatic, normocephalic - Eye Eye exam: Present: normal appearance - ENT ENT exam: Present: mucous membranes moist - Neck Neck exam: Present: normal inspection, full ROM. Absent: tenderness - Respiratory Respiratory exam: Present: normal lung sounds bilaterally. Absent: respiratory distress - Cardiovascular Cardiovascular Exam: Present: regular rate, normal rhythm - GI/Abdominal GI/Abdominal exam: Present: soft. Absent: tenderness - Extremities Exam Extremities exam: Present: normal inspection, full ROM - Neurological Exam Neurological exam: Present: alert, oriented X3, CN II-XII intact. Absent: motor sensory deficit - Psychiatric Psychiatric exam: Present: normal affect, normal mood - Skin Skin exam: Present: warm, dry, intact, normal color ED Course Vital Signs 02/07/18 02/07/18 02/07/18 18:42 22:17 22:30 Temperature 98.8 F Pulse Rate 118 H 82 Respiratory 18 18 Rate Blood Pressure 145/94 O2 Sat by Pulse 95 96 97 Oximetry 02/07/18 02/07/18 02/07/18 22:31 23:01 23:30 Temperature Pulse Rate 90 93 H 91 H Respiratory 20 13 12 Rate Blood Pressure 133/91 131/78 125/88 O2 Sat by Pulse 95 96 98 Oximetry 02/08/18 02/08/18 02/08/18 00:00 00:31 01:00 Temperature Pulse Rate 80 70 82 Respiratory 20 14 20 Rate Blood Pressure 121/61 117/53 119/76 O2 Sat by Pulse 95 92 93 Oximetry ED Medical Decision Making - Lab Data Result diagrams: 02/07/18 19:13 02/07/18 19:13 - EKG Data -: EKG Interpreted by Co EKG shows normal: sinus rhythm, intervals, QRS complexes, ST-T waves Rate: tachycardia - EKG Data Interpretation: other (left axis deviation, otherwise unremarkable) - Radiology Data Radiology results: report reviewed, image reviewed - Medical Decision Making 52-year-old male status post syncopal episode today. Reports crack cocaine use prior to episode. Head CT are unremarkable. Patient neurologically intact. EKG and labs unremarkable. Patient given IV fluids, reports feeling much better. Spoke with patient regarding cessation of cocaine use. States he understands the effects. Denies follow-up as an outpatient. Return precautions given. - Differential Diagnosis dehydration, arrythmia, drug effect, intracranial injury, ACS Critical care attestation.: If time is entered above; I have spent that time in minutes in the direct care of this critically ill patient, excluding procedure time. ED Disposition Clinical Impression: Syncope, Cocaine abuse Disposition: DC-01 TO HOME OR SELFCARE Is pt being admited?: No Condition: Stable Instructions: Syncope (ED), Cocaine Abuse (ED) Referrals: PRIMARY CARE, [Primary Care Provider] - 3-5 Days [facility] [Provider Group] - 3-5 Days Forms: Work/School Release Form(ED) Time of Disposition: 01:25
[2018-02-08 01:57] VITALS: BP 115/66
== END 2018-02-08 01:59 | disposition home or self-care (01) ==
LOC: ED 18:18
DX: R55 Syncope and collapse (principal); F14.10 Cocaine abuse, uncomplicated; M19.90 Unspecified osteoarthritis, unspecified site; G43.909 Migraine, unspecified, not intractable, without status migrainosus; F31.9 Bipolar disorder, unspecified; F20.9 Schizophrenia, unspecified; J45.909 Unspecified asthma, uncomplicated; F17.200 Nicotine dependence, unspecified, uncomplicated; F12.10 Cannabis abuse, uncomplicated
CPT/HCPCS: 36415; 70450; 80048; 84484; 85027; 93005; 93010; 99284; J7030

== ENCOUNTER 2018-08-08 17:59 | Emergency (ER) | payer MEDICARE ==
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
[2018-08-08 18:54] VITALS: BP 119/82
== END 2018-08-08 19:29 | disposition left against medical advice (07) ==
LOC: ED 17:59
DX: T22.00XA Burn of unspecified degree of shoulder and upper limb, except wrist and hand, unspecified site, initial encounter (principal); W86.8XXA Exposure to other electric current, initial encounter; Y93.89 Activity, other specified; Y92.89 Other specified places as the place of occurrence of the external cause; Y99.8 Other external cause status; Z53.21 Procedure and treatment not carried out due to patient leaving prior to being seen by health care provider

== ENCOUNTER 2018-08-09 08:18 | Emergency (ER) | payer MEDICARE ==
[2018-08-09 09:33] VITALS: BP 117/79
--- NOTE | 2018-08-09 09:51 | Emergency Department Report ---
ED Burn/Smoke HPI - General Chief complaint: Burn/Smoke Inhalation Stated complaint: RT ARM BURN FROM RADIATOR Time Seen by Provider: 08/09/18 09:44 Source: patient Mode of arrival: Ambulatory Limitations: No Limitations - History of Present Illness Initial comments: PT states that he was working on a radiator yesterday and he burned his right arm while doing so. Patient denies any other injury. Patient has a non-circumferential burn to the right arm. There is no blisters. There is no open areas. There is no eschar. He is neurovascularly intact. Patient is not taking his psychiatric medicines because he has not been able to get to his doctor. He is also requesting a med refill. There is no HI or SI. He is cooperative. MD Complaint: burn Location - Extremities: Right: Arm Severity: mild Severity scale (0 -10): 5 Associated Symptoms: denies other symptoms - Related Data Previous Rx's Medication Instructions Recorded Last Taken Type QUEtiapine [SEROquel] 400 mg PO HS #60 tablet 08/09/18 Unknown Rx Sertraline [Zoloft] 100 mg PO QDAY #30 tablet 08/09/18 Unknown Rx Silver Sulfadiazine [Ssd] 400 gm TP BID #1 each 08/09/18 Unknown Rx cephALEXin [Keflex] 500 mg PO Q12HR #20 cap 08/09/18 Unknown Rx traMADol [Ultram] 50 mg PO Q6HR PRN #10 tablet 08/09/18 Unknown Rx traZODone [Desyrel] 100 mg PO QHS #30 tablet 08/09/18 Unknown Rx Allergies Allergy/AdvReac Type Severity Reaction Status Date / Time No Known Allergies Allergy Verified 08/10/17 19:49 Burn HPI - History Stated Complaint: LT ARM BURN FROM RADIATOR Chief Complaint: Burn/Smoke Inhalation Time Seen by Provider: 08/09/18 09:44 - Home Meds and Allergies Home Medications: Previous Rx's Medication Instructions Recorded Last Taken Type QUEtiapine [SEROquel] 400 mg PO HS #60 tablet 08/09/18 Unknown Rx Sertraline [Zoloft] 100 mg PO QDAY #30 tablet 08/09/18 Unknown Rx Silver Sulfadiazine [Ssd] 400 gm TP BID #1 each 08/09/18 Unknown Rx cephALEXin [Keflex] 500 mg PO Q12HR #20 cap 08/09/18 Unknown Rx traMADol [Ultram] 50 mg PO Q6HR PRN #10 tablet 08/09/18 Unknown Rx traZODone [Desyrel] 100 mg PO QHS #30 tablet 08/09/18 Unknown Rx Allergies/Adverse Reactions: Allergies Allergy/AdvReac Type Severity Reaction Status Date / Time No Known Allergies Allergy Verified 08/10/17 19:49 ED Review of Systems ROS: Stated complaint: LT ARM BURN FROM RADIATOR Other details as noted in HPI Comment: All other systems reviewed and negative Constitutional: denies: chills Eyes: denies: eye pain ENT: denies: throat pain Respiratory: denies: cough Cardiovascular: denies: chest pain Endocrine: denies: intolerance to heat Gastrointestinal: denies: abdominal pain Genitourinary: denies: as per HPI Musculoskeletal: denies: back pain Skin: as per HPI, lesions Neurological: denies: headache Psychiatric: denies: anxiety Hematological/Lymphatic: denies: easy bleeding ED Past Medical Hx - Past Medical History Previous Medical History?: Yes Hx Hypertension: No Hx Congestive Heart Failure: No Hx Diabetes: No Hx Arthritis: Yes Hx Headaches / Migraines: Yes (MIGRAINES) Hx Psychiatric Treatment: Yes (bipolar schiz, depression, anxiety, OCD) Hx Asthma: Yes Hx COPD: No Hx HIV: No Additional medical history: Chronic bronchitis - Surgical History Past Surgical History?: Yes Additional Surgical History: l) hand surg umbical hernia t&A. left knee surg - 2014 - Family History Family history: no significant - Social History Smoking Status: Current Every Day Smoker Substance Use Type: Alcohol, Marijuana - Medications Home Medications: Home Medications Medication Instructions Recorded Confirmed Last Taken Type QUEtiapine [SEROquel] 400 mg PO HS #60 tablet 08/09/18 Unknown Rx Sertraline [Zoloft] 100 mg PO QDAY #30 tablet 08/09/18 Unknown Rx Silver Sulfadiazine [Ssd] 400 gm TP BID #1 each 08/09/18 Unknown Rx cephALEXin [Keflex] 500 mg PO Q12HR #20 cap 08/09/18 Unknown Rx traMADol [Ultram] 50 mg PO Q6HR PRN #10 tablet 08/09/18 Unknown Rx traZODone [Desyrel] 100 mg PO QHS #30 tablet 08/09/18 Unknown Rx ED Physical Exam - General Limitations: No Limitations General appearance: alert - Head Head exam: Present: atraumatic - Eye Eye exam: Present: normal appearance, PERRL - ENT ENT exam: Present: normal exam, mucous membranes moist - Neck Neck exam: Present: normal inspection - Respiratory Respiratory exam: Present: normal lung sounds bilaterally - Cardiovascular Cardiovascular Exam: Present: regular rate - GI/Abdominal GI/Abdominal exam: Present: soft - Rectal Rectal exam: Present: deferred - Expanded Upper Extremity Exam Right Shoulder Exam: Present: normal inspection Upper Arm exam: Present: normal inspection Elbow exam: Present: normal inspection Forearm Wrist exam: Present: other (BURN) Hand Wrist exam: Present: normal inspection Neuro motor exam: Present: wrist extension intact, thumb opposition intact, thumb IP flexion intact Neurosensory exam: Present: radial nerve intact, ulnar nerve intact, median nerve intact Vascular: Present: normal capillary refill, radial pulse, brachial pulse, ulnar pulse - Back Exam Back exam: Present: normal inspection - Neurological Exam Neurological exam: Present: alert, oriented X3 - Psychiatric Psychiatric exam: Present: normal affect - Skin Skin exam: Present: dry, other (BURN SUPERFICIAL NON CIRCUM. N/V INTACT. FULL ROM. TDAP UTD. ) ED Course Vital Signs 08/09/18 09:32 Temperature 97.8 F Pulse Rate 58 L Respiratory 18 Rate Blood Pressure 117/79 O2 Sat by Pulse 98 Oximetry ED Medical Decision Making - Medical Decision Making SUPERFICIAL NON CIRCUM. BURN TO RA LESS THAN 5 PERCENT TBSA NO ESCAR NO OPEN AREAS NO BLISTERS TDAP UTD FULL ROM GOOD PULSES RAPID CAP REFILL SSD WOUND CARE AND INSTRUCTIONS DC HOME WITH [facility] FOLLOW UP. Vital Signs 08/09/18 09:32 Temperature 97.8 F Pulse Rate 58 L Respiratory 18 Rate Blood Pressure 117/79 O2 Sat by Pulse 98 Oximetry Critical care attestation.: If time is entered above; I have spent that time in minutes in the direct care of this critically ill patient, excluding procedure time. ED Disposition Clinical Impression: Burn, Medication refill Disposition: DC-01 TO HOME OR SELFCARE Is pt being admited?: No Does the pt Need Aspirin: No Condition: Stable Instructions: Superficial Burn (ED) Additional Instructions: MEDS ORDERED TODAY FOLLOW UP [facility] FOR YOUR MEDS FOLLOW UP WITH DR FREEMAN AT [facility] FOR ARM CALL TODAY FOR AN APPOINTMENT REFERRAL BELOW CREAM INSTRUCTED TO ARM TWICE PER DAY Prescriptions: traZODone [Desyrel] 100 mg PO QHS #30 tablet cephALEXin [Keflex] 500 mg PO Q12HR #20 cap QUEtiapine [SEROquel] 400 mg PO HS #60 tablet Silver Sulfadiazine [Ssd] 400 gm TP BID #1 each traMADol [Ultram] 50 mg PO Q6HR PRN #10 tablet PRN Reason: Pain Sertraline [Zoloft] 100 mg PO QDAY #30 tablet Referrals: FERNANDEZ KOWALSKI MD [Primary Care Provider] - 3-5 Days [facility] [Outside] - 3-5 Days Time of Disposition: 09:48
[2018-08-09] MEDS ORDERED: THERMAZENE 50 GRAM TP ONE (10:30)
== END 2018-08-09 10:53 | disposition home or self-care (01) ==
LOC: ED 08:18
DX: T22.00XA Burn of unspecified degree of shoulder and upper limb, except wrist and hand, unspecified site, initial encounter (principal); X08.8XXA Exposure to other specified smoke, fire and flames, initial encounter; Y93.89 Activity, other specified; Y92.89 Other specified places as the place of occurrence of the external cause; Y99.8 Other external cause status
CPT/HCPCS: 99282

== ENCOUNTER 2018-11-10 02:04 | Emergency (ER) | payer MEDICARE ==
[2018-11-10] MEDS ORDERED: IBUPROFEN PO ONE (04:55)
[2018-11-10] MEDS ORDERED: BOOSTRIX IM ONE (04:56)
[2018-11-10] MEDS ORDERED: ANTIBIOTIC OINT TP NR (04:56)
[2018-11-10] MEDS ORDERED: NORCO 5/325 PO STA (04:56)
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
[2018-11-10 05:46] VITALS: BP 126/93
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
== END 2018-11-10 07:03 | disposition home or self-care (01) ==
LOC: ED 02:04
DX: S41.011A Laceration without foreign body of right shoulder, initial encounter (principal); S51.811A Laceration without foreign body of right forearm, initial encounter; S00.93XA Contusion of unspecified part of head, initial encounter; M19.90 Unspecified osteoarthritis, unspecified site; F31.9 Bipolar disorder, unspecified; F20.9 Schizophrenia, unspecified; F42.9 Obsessive-compulsive disorder, unspecified; G43.909 Migraine, unspecified, not intractable, without status migrainosus; J45.909 Unspecified asthma, uncomplicated; F17.200 Nicotine dependence, unspecified, uncomplicated; Z79.899 Other long term (current) drug therapy; X99.1XXA Assault by knife, initial encounter; Y93.89 Activity, other specified; Y92.098 Other place in other non-institutional residence as the place of occurrence of the external cause; Y99.8 Other external cause status
CPT/HCPCS: 70450; 72125; 90471; 90715

== ENCOUNTER 2020-09-20 20:09 | Emergency (ER) | payer MEDICARE, OTHER ==
[2020-09-20 22:59] VITALS: BP 124/81
--- NOTE | 2020-09-20 23:06 | Emergency Department Report ---
Stated Complaint: MEDICATION REFILL Time Seen by Provider: 09/20/20 23:01 - HPI History of Present Illness: Patient is a 54-year-old male presents emergency room complaints of medication refill. He reports that he ran out of psych meds, states he is on trazadone and seroquel, was previously at [facility] and was advised to follow-up with the [facility] for medication refills, he states he has not yet followed up. He states he has been out of his medications for approximately 3 weeks. He states that he is just having difficulty sleeping but is still able to sleep. He denies any other complaints. He denies any SI or HI. He denies any visual auditory hallucinations. Vitals are normal On exam: Non toxic appearing, no acute distress atraumatic, normocephalic normal appearance of the eyes, EOMI, no periorbital edema or ecchymosis moist mucus membranes No respiratory distress, no accessory muscle use A&O x4, no focal neuro deficit skin is warm, dry, intact Patient presents for medication refill He has no complaints at this time He denies any SI, HI, hallucinations Discussed case with Dr. Alvarado, ER attending who agrees with having patient follow-up outpatient with the [facility] for medication management Patient given appropriate resources Patient also given another list of outpatient psych resources Discussed return precautions Medical screening examination performed there is no better life or limb at this time - Exam Vital Signs: Vital Signs 09/20/20 22:54 Temperature 98.2 F Pulse Rate 97 H Respiratory 18 Rate Blood Pressure 124/81 O2 Sat by Pulse 100 Oximetry MSE screening note: Focused history and physical exam performed. ED Disposition for MSE Clinical Impression: Encounter for medical screening examination Disposition: Z-07 MED SCREENING EXAM-LEFT Is pt being admited?: No Does the pt Need Aspirin: No Condition: Stable Additional Instructions: please follow up with the [facility] or outpatient mental health. return to the emergency room or call the [facility] if begin feeling thoughts of wanting to hurt yourself or others. For access to services and immediate crisis help, call the [place] [facility] ([facility]) at , available 14/12. Referrals: PRIMARY CARE, [Primary Care Provider] - 2-3 Days [facility] [Outside] - 2-3 Days Time of Disposition: 23:02 Print Language: ICELANDIC
== END 2020-09-20 23:10 | disposition left against medical advice (07) ==
LOC: ED 20:09
DX: Z13.9 Encounter for screening, unspecified (principal); Z53.21 Procedure and treatment not carried out due to patient leaving prior to being seen by health care provider

== ENCOUNTER 2020-11-05 16:54 | Emergency (ER) | payer MEDICARE, OTHER ==
[2020-11-05 17:31] VITALS: BP 120/79
--- NOTE | 2020-11-05 19:56 | Emergency Department Report ---
ED General Adult HPI - General Chief complaint: Skin/Abscess/Foreign Body Stated complaint: ABSCESS UNDER RIGHT ARM Time Seen by Provider: 11/05/20 19:51 Source: patient Mode of arrival: Ambulatory Limitations: No Limitations - History of Present Illness Initial comments: 54-year-old male patient presents emergency department with complaints of an abscess to his right axilla starting 1 week ago. Patient states he was evaluated by another medical provider yesterday and administered IM antibiotics. 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 Patient has been taking Motrin for pain with limited relief. Denies fever, chills, neck stiffness, shortness of breath, purulent drainage. Denies other complaints at this time. - Related Data Previous Rx's Medication Instructions Recorded Last Taken Type QUEtiapine [SEROquel] 400 mg PO HS #60 tablet 08/09/18 Unknown Rx Sertraline [Zoloft] 100 mg PO QDAY #30 tablet 08/09/18 Unknown Rx Silver Sulfadiazine [Ssd] 400 gm TP BID #1 each 08/09/18 Unknown Rx cephALEXin [Keflex] 500 mg PO Q12HR #20 cap 08/09/18 Unknown Rx traMADoL [Ultram] 50 mg PO Q6HR PRN #10 tablet 08/09/18 Unknown Rx traZODone [Desyrel] 100 mg PO QHS #30 tablet 08/09/18 Unknown Rx Chlorhexidine Gluconate [Hibiclens] 10 ml TP BID #240 liquid 11/10/18 Unknown Rx Mupirocin [Bactroban 2%] 15 applic TP TID #15 gm 11/10/18 Unknown Rx Naproxen 500 mg PO BID #20 tablet 11/05/20 Unknown Rx Allergies Allergy/AdvReac Type Severity Reaction Status Date / Time No Known Allergies Allergy Verified 08/10/17 19:49 ED Review of Systems ROS: Stated complaint: ABSCESS UNDER RIGHT ARM Other details as noted in HPI Other: GENERAL: Negative for fever, chills, weight change, anorexia, fatigue. ENT: Negative for ear pain, difficulty hearing, sore throat, nasal congestion, epistaxis. CARDIOVASCULAR: Negative for chest pain, palpitations, lower extremity swelling. PULMONARY: Negative for cough, dyspnea, wheezing, orthopnea, cyanosis. GASTROINTESTINAL: Negative for abdominal pain, nausea, vomiting, diarrhea, constipation. MUSCULOSKELETAL: Negative for joint pain, joint swelling, myalgias, back pain, neck pain. NEUROLOGICAL: Negative for headache, seizure, syncope, paresthesias, weakness. INTEGUMENTARY: Positive for abscess. HEMATOLOGICAL: Negative for hemoptysis, hematemesis, hematochezia, hematuria. PSYCHIATRIC: Negative for hallucinations, suicidal ideation, homicidal ideation, anxiety, depression. ED Past Medical Hx - Past Medical History Previous Medical History?: Yes Hx Hypertension: Yes Hx Congestive Heart Failure: No Hx Diabetes: No Hx Arthritis: Yes Hx Headaches / Migraines: Yes (MIGRAINES) Hx Psychiatric Treatment: Yes (bipolar schiz, depression, anxiety, OCD) Hx Asthma: Yes Hx COPD: No Hx HIV: No Additional medical history: Chronic bronchitis - Surgical History Past Surgical History?: Yes Additional Surgical History: l) hand surg umbical hernia t&A. left knee surg - 2014 - Social History Smoking Status: Current Every Day Smoker Substance Use Type: Marijuana - Medications Home Medications: Home Medications Medication Instructions Recorded Confirmed Last Taken Type QUEtiapine [SEROquel] 400 mg PO HS #60 tablet 08/09/18 Unknown Rx Sertraline [Zoloft] 100 mg PO QDAY #30 tablet 08/09/18 Unknown Rx Silver Sulfadiazine [Ssd] 400 gm TP BID #1 each 08/09/18 Unknown Rx cephALEXin [Keflex] 500 mg PO Q12HR #20 cap 08/09/18 Unknown Rx traMADoL [Ultram] 50 mg PO Q6HR PRN #10 tablet 08/09/18 Unknown Rx traZODone [Desyrel] 100 mg PO QHS #30 tablet 08/09/18 Unknown Rx Chlorhexidine Gluconate [Hibiclens] 10 ml TP BID #240 liquid 11/10/18 Unknown Rx Mupirocin [Bactroban 2%] 15 applic TP TID #15 gm 11/10/18 Unknown Rx Naproxen 500 mg PO BID #20 tablet 11/05/20 Unknown Rx ED Physical Exam - General Limitations: No Limitations - Other Other exam information: General: Awake, appropriately interactive, no acute distress. Neck: Supple. Full range of motion intact. Cardiovascular: Normal peripheral perfusion. Pulmonary: No respiratory distress. Patient is speaking normally without use of accessory muscles. Skin: Two small abscesses noted to the right axillary region, both tender to palpation, both indurated. No streaking erythema. No fluctuance or purulent drainage. No crepitus. Pain is appropriately proportional to exam findings. Neurological: No facial asymmetry. Speech is clear. Follows commands. Patient is alert and oriented. Musculoskeletal: Moves all four extremities spontaneously with normal range of motion. Psych: Cooperative. Appropriate mood and affect. ED Course Vital Signs 11/05/20 17:31 Temperature 98.3 F Pulse Rate 77 Respiratory 18 Rate Blood Pressure 120/79 O2 Sat by Pulse 99 Oximetry ED Medical Decision Making - Medical Decision Making Differential diagnosis including but not limited to: abscess, cellulitis, hidradenitis suppurativa, necrotizing soft tissue infection Patient presents to the emergency department with complaints of right axillary abscess. He is afebrile, hemodynamically stable, pain is appropriately proportional to exam findings. There is no fluctuance to warrant incision and drainage. Patient has already been administered a dose of parenteral antibiotics within the last 24 hours. His oral antibiotic prescription is scheduled to be delivered tomorrow. Patient is an appropriate candidate for continued conservative management with antibiotics, warm compresses, and appropriate pain control. Emphasized the importance of adhering to previously prescribed medication regimen and following up with primary care provider this week for re-evaluation. Patient expressed understanding and is agreeable to plan of care. Strict return precautions provided. History, exam, diagnostic testing, and current condition do not suggest worrisome pathology to warrant further testing, continued ED treatment, admission, or surgical evaluation at this point. Given the low probability of a significant medical illness, it would be more likely to result in harm than benefit to perform further testing at this stage. Discussed findings, presumptive diagnosis, need for follow-up and specific signs/symptoms that should prompt immediate return to the emergency department. Instructions were explained in detail to the patient in addition to giving written discharge information. Patient expressed understanding and was given the opportunity to ask questions, all of which were satisfactorily answered prior to discharge home. Critical care attestation.: If time is entered above; I have spent that time in minutes in the direct care of this critically ill patient, excluding procedure time. ED Disposition Clinical Impression: Abscess of right axilla Disposition: - TO HOME OR SELFCARE Is pt being admited?: No Does the pt Need Aspirin: No Condition: Stable Instructions: Skin Abscess, [id number] Additional Instructions: Take Tylenol every 4 hours as needed for pain. Take Naprosyn twice daily with food as needed for pain. Continue antibiotics as previously prescribed. Take antibiotics with food to prevent GI upset. Apply warm compresses to affected area 3 times daily. The area may begin to drain on its own. Do not forcefully attempt to express drainage from the area. Follow-up with primary care provider this week. Call tomorrow to schedule appointment. See referral information below. Return to the emergency department immediately for new or worsening symptoms. Prescriptions: Naproxen 500 mg PO BID #20 tablet Referrals: HAI HERNANDEZ MD [Staff Physician] - 3-5 Days [facility] [Outside] - 3-5 Days [facility] [Outside] - 3-5 Days [facility] [Outside] - 3-5 Days [facility] [Provider Group] - 3-5 Days Forms: Work/School Release Form(ED) Time of Disposition: 19:59
== END 2020-11-05 21:00 | disposition home or self-care (01) ==
LOC: ED 16:54
DX: L02.411 Cutaneous abscess of right axilla (principal); I10 Essential (primary) hypertension; M19.91 Primary osteoarthritis, unspecified site; G43.909 Migraine, unspecified, not intractable, without status migrainosus; F31.9 Bipolar disorder, unspecified; J45.909 Unspecified asthma, uncomplicated; F17.200 Nicotine dependence, unspecified, uncomplicated; F12.10 Cannabis abuse, uncomplicated; Z98.890 Other specified postprocedural states; Z79.899 Other long term (current) drug therapy
CPT/HCPCS: 99282

== ENCOUNTER 2020-11-23 15:21 | Emergency (ER) | payer MEDICARE ==
[2020-11-23 15:52] VITALS: BP 132/91
--- NOTE | 2020-11-23 17:05 | XRay Report ---
RIGHT KNEE 3 VIEWS INDICATION / CLINICAL INFORMATION: right knee pain/injury COMPARISON: None available. FINDINGS: BONES / JOINT(S): No acute fracture or subluxation. 3 compartmental DJD greatest at the patellofemora l joint where changes are mild/moderate. SOFT TISSUES: Small joint effusion. Mild chondrocalcinosis. ADDITIONAL FINDINGS: None. Signer Name: Medhat Garber MD Signed: 11/23/2020 5:00 PM Workstation Name: [id number]
--- NOTE | 2020-11-23 17:45 | Emergency Department Report ---
ED Lower Extremity HPI - General Chief Complaint: Extremity Injury, Lower Stated Complaint: RIGHT KNEE PAIN Time Seen by Provider: 11/23/20 16:55 Source: patient Mode of arrival: Ambulatory Limitations: No Limitations - History of Present Illness Initial Comments: 54-year-old male presents to the ER today with complaints of pain to the medial aspect of his right knee. Patient states that his symptoms started about 2 weeks ago. Patient states that he was crossing the street and while walking felt a sudden pop to his right knee. He states since then he has continued to have pain to the medial aspect of the knee which is worse when he stands and walks. He denies any apparent swelling or bruising or erythema. He states that his been using [id number]-[id number] rubs and taking hnvu-tbr-[id number] meds without much relief. He states that he does have an appointment with Dr. Snell, cyber forensic specialist next Wednesday for his knee. He denies prior issues to the right knee in the past but states that he did have a left knee replacement in 2017 secondary to prior injury. MD Complaint: knee injury -: week(s) (2) - Related Data Previous Rx's Medication Instructions Recorded Last Taken Type QUEtiapine [SEROquel] 400 mg PO HS #60 tablet 08/09/18 Unknown Rx Sertraline [Zoloft] 100 mg PO QDAY #30 tablet 08/09/18 Unknown Rx Silver Sulfadiazine [Ssd] 400 gm TP BID #1 each 08/09/18 Unknown Rx traZODone [Desyrel] 100 mg PO QHS #30 tablet 08/09/18 Unknown Rx Ibuprofen [Motrin] 800 mg PO Q8HR PRN #30 tablet 11/23/20 Unknown Rx traMADoL [Ultram] 50 mg PO Q6HR PRN #12 tablet 11/23/20 Unknown Rx Allergies Allergy/AdvReac Type Severity Reaction Status Date / Time No Known Allergies Allergy Verified 08/10/17 19:49 ED Review of Systems ROS: Stated complaint: RIGHT KNEE PAIN Other details as noted in HPI Comment: All other systems reviewed and negative Constitutional: denies: chills, fever Eyes: denies: eye pain, eye discharge, vision change ENT: denies: ear pain, throat pain Respiratory: denies: cough, shortness of breath, SOB with exertion, SOB at rest, wheezing Cardiovascular: denies: chest pain, palpitations, dyspnea on exertion, edema, syncope, paroxysmal nocturnal dyspnea Endocrine: no symptoms reported Genitourinary: denies: urgency, dysuria, frequency, hematuria, discharge, testicular pain, testicular mass Musculoskeletal: arthralgia. denies: back pain, joint swelling, myalgia Skin: denies: rash, lesions, change in color, change in hair/nails, pruritus Neurological: denies: headache, weakness, numbness, paresthesias, confusion, abnormal gait, vertigo Psychiatric: denies: anxiety, depression, auditory hallucinations, visual hallucinations, homicidal thoughts, suicidal thoughts Hematological/Lymphatic: denies: easy bleeding, easy bruising, swollen glands ED Past Medical Hx - Past Medical History Previous Medical History?: Yes Hx Hypertension: Yes Hx Congestive Heart Failure: No Hx Diabetes: No Hx Arthritis: Yes Hx Headaches / Migraines: Yes (MIGRAINES) Hx Psychiatric Treatment: Yes (bipolar schiz, depression, anxiety, OCD) Hx Asthma: Yes Hx COPD: No Hx HIV: No Additional medical history: Chronic bronchitis - Surgical History Past Surgical History?: Yes Additional Surgical History: l) hand surg umbical hernia t&A. left knee surg - 2014 - Social History Smoking Status: Former Smoker Substance Use Type: Alcohol - Medications Home Medications: Home Medications Medication Instructions Recorded Confirmed Last Taken Type QUEtiapine [SEROquel] 400 mg PO HS #60 tablet 08/09/18 Unknown Rx Sertraline [Zoloft] 100 mg PO QDAY #30 tablet 08/09/18 Unknown Rx Silver Sulfadiazine [Ssd] 400 gm TP BID #1 each 08/09/18 Unknown Rx traZODone [Desyrel] 100 mg PO QHS #30 tablet 08/09/18 Unknown Rx Ibuprofen [Motrin] 800 mg PO Q8HR PRN #30 tablet 11/23/20 Unknown Rx traMADoL [Ultram] 50 mg PO Q6HR PRN #12 tablet 11/23/20 Unknown Rx ED Physical Exam - General Limitations: No Limitations General appearance: alert, in no apparent distress - Head Head exam: Present: atraumatic, normocephalic, normal inspection - Eye Eye exam: Present: normal appearance, PERRL, EOMI Pupils: Present: normal accommodation - ENT ENT exam: Present: normal exam, mucous membranes moist - Respiratory Respiratory exam: Present: normal lung sounds bilaterally. Absent: respiratory distress, wheezes, rales, rhonchi - Cardiovascular Cardiovascular Exam: Present: regular rate, normal rhythm, normal heart sounds - Expanded Lower Extremity Exam Right Knee exam: Present: full ROM, tenderness (Mod point ttp noted to medial aspect of right. ). Absent: swelling, abrasion, laceration, ecchymosis, deformity, crepidus, dislocation, erythema, effusion, pain w/ pronation/supination Neuro vascular tendon exam: Present: no vascular compromise. Absent: motor deficit, sensory deficit Gait: Positive: observed and normal - Neurological Exam Neurological exam: Present: alert, oriented X3, CN II-XII intact. Absent: motor sensory deficit - Psychiatric Psychiatric exam: Present: normal affect, normal mood - Skin Skin exam: Present: intact ED Course Vital Signs 11/23/20 15:47 Temperature 98.6 F Pulse Rate 63 Respiratory 20 Rate Blood Pressure 132/91 O2 Sat by Pulse 97 Oximetry ED Lower Extremity MDM - Radiology Data Radiology results: report reviewed Patient: CHILANGO RICH MR#: [id number] 1990 : 1965 A cct:[id number] Age/Sex: 54 / M ADM Date: 11/23/20 Loc: ED Attending Dr: Ordering Physician: SAM IQBAL MD Date of Service: 11/23/20 Procedure(s): XR knee 3V RT Accession Number(s): [id number] cc: SAM IQBAL MD Fluoro Time In Minutes: RIGHT KNEE 3 VIEWS INDICATION / CLINICAL INFORMATION: right knee pain/injury COMPARISON: None available. FINDINGS: BONES / JOINT(S): No acute fracture or subluxation. 3 compartmental DJD greatest at the patellofemoral joint where changes are mild/moderate. SOFT TISSUES: Small joint effusion. Mild chondrocalcinosis. ADDITIONAL FINDINGS: None. Signer Name: Medhat Garber MD Signed: 11/23/2020 5:00 PM Workstation Name: [id number] Transcribed By: RHINA Dictated By: Medhat Garber MD Electronically Authenticated By: Medhat Garber MD Signed Date/Time: 11/23/20 1700 Critical care attestation.: If time is entered above; I have spent that time in minutes in the direct care of this critically ill patient, excluding procedure time. ED Disposition Clinical Impression: Knee pain, right, DJD (degenerative joint disease) of knee, Knee effusion Disposition: TO HOME OR SELFCARE Is pt being admited?: No Does the pt Need Aspirin: No Condition: Stable Instructions: Knee Effusion, [id number], Osteoarthritis, Acute Knee Pain, Adult, [id number] Additional Instructions: I recommend that you take the motrin and the ultram as prescribed for pain. Continue to wear your splint as discussed. Elevate leg as often possible. Keep your appointment with Dr. Snell for next Wednesday. Return to the ER if your symptoms changes or worsens in any way. Prescriptions: Ibuprofen [Motrin] 800 mg PO Q8HR PRN #30 tablet PRN Reason: Pain traMADoL [Ultram] 50 mg PO Q6HR PRN #12 tablet PRN Reason: Pain Referrals: CHILANGO SNELL MD [Staff Physician] - 3-5 Days Time of Disposition: 18:02
== END 2020-11-23 17:45 | disposition home or self-care (01) ==
LOC: ED 15:21
DX: M17.11 Unilateral primary osteoarthritis, right knee (principal); M25.461 Effusion, right knee; I10 Essential (primary) hypertension; M19.90 Unspecified osteoarthritis, unspecified site; J45.909 Unspecified asthma, uncomplicated; Z98.890 Other specified postprocedural states; Z72.89 Other problems related to lifestyle; Z79.899 Other long term (current) drug therapy
CPT/HCPCS: 99283

== ENCOUNTER 2021-05-15 21:22 | Emergency (ER) | payer MEDICARE ==
[2021-05-16] MEDS ORDERED: ACETAMINOPHEN 500 MG TAB PO ONE (01:01)
[2021-05-16] MEDS ORDERED: IBUPROFEN 600 MG TAB PO ONE (01:01)
[2021-05-16] MEDS ORDERED: ONDANSETRON 4 MG ODT TAB PO ONE (01:01)
[2021-05-16] MEDS ORDERED: predniSONE 20 MG TAB PO ONE (01:01)
--- NOTE | 2021-05-16 02:27 | XRay Report ---
CHEST 2 VIEWS INDICATION / CLINICAL INFORMATION: COUGH, FEVER, FLU-LIKE SYMPTOMS. COMPARISON: 2 views of the chest from 04/25/2017. FINDINGS: SUPPORT DEVICES: None. HEART / MEDIASTINUM: No significant abnormality. LUNGS / PLEURA: Lung volumes are reduced with bibasilar opacities. No significant pleural effusion. N o pneumothorax. ADDITIONAL FINDINGS: No significant additional findings. IMPRESSION: Bibasilar opacities could represent pneumonia given the provided history. Atelectasis is also a consi deration. Continued radiographic follow-up to resolution is recommended. Signer Name: Tyler Peck MD Signed: 05/16/2021 2:23 AM Workstation Name: [id number]
[2021-05-16] MEDS ORDERED: AZITHROMYCIN 250 MG TAB PO ONE (02:52)
[2021-05-16] MEDS ORDERED: LIDOCAINE-MPF (1%) 10 MG/1 ML VIAL 5 ML INFILTRATI ONE (02:52)
--- NOTE | 2021-05-16 02:57 | Emergency Department Report ---
ED General Adult HPI - General Chief complaint: Fever Stated complaint: FEVER COUGH HEADACHE Source: patient Mode of arrival: Ambulatory Limitations: No Limitations - History of Present Illness Initial comments: Patient is a 55-year-old -[place] male with a history of migraine headaches, chronic bronchitis, hypertension, schizophrenia, bipolar disorder, asthma, anxiety, depression, OCD and chronic osteoarthritis who presented to the ED with complaint of acute onset persistent diffuse body aches and pains and joint pains, nasal and sinus congestion, persistent dry cough and frontal headache for the last 2 days. Patient states that no one else at home has had similar symptoms. Patient denies dizziness, syncope, nausea, vomiting, chest pain, shortness of breath, abdominal pain, diarrhea, dysuria, urinary frequency and urgency, palpitations or change in vision, sore throat and back pain. MD Complaint: diffuse body aches and pains, cough, frontal headache -: Sudden, days(s) (2) Location: head, chest Radiation: non-radiation Severity scale (0 -10): 10 Quality: aching, sharp Consistency: constant Improves with: none Worsens with: none Associated Symptoms: denies other symptoms, cough, fever/chills, headaches, loss of appetite, malaise. denies: confusion, chest pain, diaphoresis, nausea/vomiting, rash, seizure, shortness of breath, syncope, weakness Treatments Prior to Arrival: none - Related Data Previous Rx's Medication Instructions Recorded Last Taken Type QUEtiapine [SEROquel] 400 mg PO HS #60 tablet 08/09/18 Unknown Rx Sertraline [Zoloft] 100 mg PO QDAY #30 tablet 08/09/18 Unknown Rx Silver Sulfadiazine [Ssd] 400 gm TP BID #1 each 08/09/18 Unknown Rx traZODone [Desyrel] 100 mg PO QHS #30 tablet 08/09/18 Unknown Rx Ibuprofen [Motrin] 800 mg PO Q8HR PRN #30 tablet 11/23/20 Unknown Rx traMADoL [Ultram] 50 mg PO Q6HR PRN #12 tablet 11/23/20 Unknown Rx Acetaminophen [Tylenol] 500 mg PO Q6HR PRN #30 tablet 05/16/21 Unknown Rx Benzonatate [Tessalon Perles] 100 mg PO Q8HR #30 capsule 05/16/21 Unknown Rx Cetirizine HCl [Zyrtec 10mg tab] 10 mg PO DAILY #30 tablet 05/16/21 Unknown Rx Doxycycline Hyclate 100 mg PO Q12H #20 capsule 05/16/21 Unknown Rx methylPREDNISolone [Medrol 4MG 4 mg PO DAILY #21 tab.ds.pk 05/16/21 Unknown Rx DOSEPAK (21 tabs)] Allergies Allergy/AdvReac Type Severity Reaction Status Date / Time No Known Allergies Allergy Verified 08/10/17 19:49 ED Review of Systems ROS: Stated complaint: FEVER COUGH HEADACHE Other details as noted in HPI Constitutional: denies: chills, fever Eyes: denies: eye pain, eye discharge, vision change ENT: congestion. denies: ear pain, throat pain Respiratory: cough. denies: shortness of breath, wheezing Cardiovascular: denies: chest pain, palpitations Endocrine: no symptoms reported Gastrointestinal: denies: abdominal pain, nausea, vomiting, diarrhea Genitourinary: denies: urgency, dysuria Musculoskeletal: arthralgia, myalgia. denies: back pain Skin: denies: rash, lesions Neurological: headache. denies: weakness, paresthesias Psychiatric: denies: anxiety, depression Hematological/Lymphatic: denies: easy bleeding, easy bruising ED Past Medical Hx - Past Medical History Previous Medical History?: Yes Hx Hypertension: Yes Hx Congestive Heart Failure: No Hx Diabetes: No Hx Arthritis: Yes Hx Headaches / Migraines: Yes (MIGRAINES) Hx Psychiatric Treatment: Yes (bipolar schiz, depression, anxiety, OCD) Hx Asthma: Yes Hx COPD: No Hx HIV: No Additional medical history: Chronic bronchitis - Surgical History Past Surgical History?: Yes Additional Surgical History: l) hand surg umbical hernia t&A. left knee surg - 2014 - Social History Smoking Status: Former Smoker Substance Use Type: Alcohol - Medications Home Medications: Home Medications Medication Instructions Recorded Confirmed Last Taken Type QUEtiapine [SEROquel] 400 mg PO HS #60 tablet 08/09/18 Unknown Rx Sertraline [Zoloft] 100 mg PO QDAY #30 tablet 08/09/18 Unknown Rx Silver Sulfadiazine [Ssd] 400 gm TP BID #1 each 08/09/18 Unknown Rx traZODone [Desyrel] 100 mg PO QHS #30 tablet 08/09/18 Unknown Rx Ibuprofen [Motrin] 800 mg PO Q8HR PRN #30 tablet 11/23/20 Unknown Rx traMADoL [Ultram] 50 mg PO Q6HR PRN #12 tablet 11/23/20 Unknown Rx Acetaminophen [Tylenol] 500 mg PO Q6HR PRN #30 tablet 05/16/21 Unknown Rx Benzonatate [Tessalon Perles] 100 mg PO Q8HR #30 capsule 05/16/21 Unknown Rx Cetirizine HCl [Zyrtec 10mg tab] 10 mg PO DAILY #30 tablet 05/16/21 Unknown Rx Doxycycline Hyclate 100 mg PO Q12H #20 capsule 05/16/21 Unknown Rx methylPREDNISolone [Medrol 4MG 4 mg PO DAILY #21 tab.ds.pk 05/16/21 Unknown Rx DOSEPAK (21 tabs)] ED Physical Exam - General Limitations: No Limitations General appearance: alert, in no apparent distress - Head Head exam: Present: atraumatic, normocephalic, normal inspection - Eye Eye exam: Present: normal appearance, PERRL, EOMI Pupils: Present: normal accommodation - ENT ENT exam: Present: normal orophraynx, mucous membranes moist, TM's normal bilaterally, normal external ear exam, other (Grossly congested nasal passages; palpable frontal sinus tenderness) - Neck Neck exam: Present: normal inspection, full ROM - Respiratory Respiratory exam: Present: normal lung sounds bilaterally. Absent: respiratory distress, wheezes, rales, rhonchi, chest wall tenderness, accessory muscle use, decreased breath sounds, prolonged expiratory - Cardiovascular Cardiovascular Exam: Present: regular rate, normal rhythm, normal heart sounds. Absent: systolic murmur, diastolic murmur, rubs, gallop - GI/Abdominal GI/Abdominal exam: Present: soft, normal bowel sounds. Absent: tenderness, guarding, rebound, hyperactive bowel sounds, hypoactive bowel sounds, organomegaly, bruit - Extremities Exam Extremities exam: Present: normal inspection, full ROM, normal capillary refill - Back Exam Back exam: Present: normal inspection, full ROM. Absent: tenderness, CVA tenderness (R), CVA tenderness (L), muscle spasm, paraspinal tenderness, vertebral tenderness - Neurological Exam Neurological exam: Present: alert, oriented X3, CN II-XII intact, normal gait, reflexes normal - Psychiatric Psychiatric exam: Present: normal affect, normal mood - Skin Skin exam: Present: warm, dry, intact, normal color. Absent: rash ED Course Vital Signs 05/15/21 05/16/21 21:26 02:22 Temperature 98.8 F Pulse Rate 83 Respiratory 18 20 Rate Blood Pressure 131/88 O2 Sat by Pulse 97 Oximetry ED Medical Decision Making - Radiology Data Radiology results: report reviewed, image reviewed [facility] [address] [place] [address] XRay Report Signed Patient: CHILANGO RICH MR#: [id number] 1990 : 1965 Acct:[id number] Age/Sex: 55 / M ADM Date: 05/15/21 Loc: ED Attending Dr: Ordering Physician: LUCIA POWERS Date of Service: 05/16/21 Procedure(s): XR chest routine 2V Accession Number(s): [id number] cc: LUCIA POWERS Fluoro Time In Minutes: CHEST 2 VIEWS INDICATION / CLINICAL INFORMATION: COUGH, FEVER, FLU-LIKE SYMPTOMS. COMPARISON: 2 views of the chest from 04/25/2017. FINDINGS: SUPPORT DEVICES: None. HEART / MEDIASTINUM: No significant abnormality. LUNGS / PLEURA: Lung volumes are reduced with bibasilar opacities. No significant pleural effusion. No pneumothorax. ADDITIONAL FINDINGS: No significant additional findings. IMPRESSION: Bibasilar opacities could represent pneumonia given the provided history. Atelectasis is also a consideration. Continued radiographic follow-up to resolution is recommended. Signer Name: Tyler Peck MD Signed: 05/16/2021 2:23 AM Workstation Name: [id number] Transcribed By: [place] Dictated By: Tyler Peck MD Electronically Authenticated By: Tyler Peck MD Signed Date/Time: 05/16/21222 DD/ 1 TD/TT: - Medical Decision Making This is a 55-year-old -[place] male with a history of migraine headaches, chronic bronchitis, hypertension, schizophrenia, bipolar disorder, asthma, anxiety, depression, OCD and chronic osteoarthritis who presented to the ED with complaint of acute onset persistent diffuse body aches and pains and joint pains, nasal and sinus congestion, persistent dry cough and frontal headache for the last 2 days. Patient states that no one else at home has had similar symptoms. In the ED, patient is alert and oriented x3 and is not in any distress. Patient was treated in the ED for pain, also given antiemetics and treated with oral prednisone. Chest x-ray showed bibasilar opacities which could represent pneumonia given the provided history. Atelectasis is also a consideration. Patient was treated in the ED empirically with Rocephin 1 g intramuscular injection and azithromycin 500 mg p.o. x1. On reevaluation, patient's pain is well controlled medication. Patient is hemodynamically sta ble. Patient was discharged home on medications and advised to follow-up with his primary care physician in 7 to 10 days for reevaluation or return to the ED immediately if symptoms get worse. Patient was also encouraged to get tested for COVID-19 viral infection in any of the outpatient facilities. - Differential Diagnosis COVID-19; influenza; URI; sinusitis; pneumonia; bronchitis; Critical care attestation.: If time is entered above; I have spent that time in minutes in the direct care of this critically ill patient, excluding procedure time. ED Disposition Clinical Impression: Acute upper respiratory infection Acute frontal sinusitis Qualifiers: Recurrence: non-recurrent Qualified Code(s): J01.10 - Acute frontal sinusitis, unspecified Community acquired pneumonia Qualifiers: Laterality: unspecified laterality Qualified Code(s): J18.9 - Pneumonia, unspecified organism Disposition: 01 HOME / SELF CARE / HOMELESS Is pt being admited?: No Does the pt Need Aspirin: No Condition: Stable Instructions: Cough, Adult, [id number], Sinusitis, Adult, [id number], Upper Respiratory Infection, Adult, [id number], Community-Acquired Pneumonia, Adult, [id number], Bacterial Pneumonia (ED) Additional Instructions: Take medication with food, drink plenty of fluids and follow-up with your primary care physician in 7 to 10 days for reevaluation. Return to the ED immediately if symptoms get worse. Prescriptions: Acetaminophen [Tylenol] 500 mg PO Q6HR PRN #30 tablet PRN Reason: Pain or fever Doxycycline Hyclate 100 mg PO Q12H #20 capsule methylPREDNISolone [Medrol 4MG DOSEPAK (21 tabs)] 4 mg PO DAILY #21 tab.ds.pk Benzonatate [Tessalon Perles] 100 mg PO Q8HR #30 capsule Cetirizine HCl [Zyrtec 10mg tab] 10 mg PO DAILY #30 tablet Referrals: KODY LANZA MD [Primary Care Provider] - 3-5 Days Forms: Work/School Release Form(ED) Time of Disposition: 02:59 Print Language: LIBERIAN
[2021-05-16 05:20] VITALS: BP 122/82
== END 2021-05-16 05:24 | disposition home or self-care (01) ==
LOC: ED 21:22
DX: J06.9 Acute upper respiratory infection, unspecified (principal); J01.10 Acute frontal sinusitis, unspecified; J18.9 Pneumonia, unspecified organism; I10 Essential (primary) hypertension; G43.909 Migraine, unspecified, not intractable, without status migrainosus; M19.90 Unspecified osteoarthritis, unspecified site; J45.909 Unspecified asthma, uncomplicated; Z79.899 Other long term (current) drug therapy
CPT/HCPCS: 71046; 87116; 87400; 87430; 96372; 99283; J0696; J3490; J7512; Q0162

== ENCOUNTER 2021-06-27 09:58 | Outpatient (CLI) | payer MEDICARE ==
--- NOTE | 2021-06-27 10:56 | XRay Report ---
Right knee INDICATION: Knee pain FINDINGS: There is tricompartmental degenerative change and joint space narrowing most significant at patellofemoral joint. Joint effusion is noted. No acute fracture. Signer Name: Francisco Briscoe MD Signed: 06/27/2021 10:52 AM Workstation Name: [id number]
--- NOTE | 2021-06-27 12:47 | XRay Report ---
Single frontal image of the knees INDICATION: BILATERAL KNEE PAIN. COMPARISON: Right knee series from 11/23/2020 IMPRESSION: Intact left knee arthroplasty without complication. 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 Soft tissues are unremarkable. Signer Name: Tee Beard MD Signed: 06/27/2021 12:43 PM Workstation Name: [id number]
== END 2021-06-27 09:59 | disposition home or self-care (01) ==
LOC: XRAY 09:58
PROVIDERS: ATTEND Orthopaedic Surgery
DX: M17.0 Bilateral primary osteoarthritis of knee (principal)
CPT/HCPCS: 73565